=== PATIENT | female | born 1950 | race Caucasian/White ===

== ENCOUNTER → 2016-07-22 | Outpatient (CLI) | payer OTHER ==
[~2016-07-22] MED LIST: BNT20 PO; CALC12502 PO; CHOL100027 PO; CMP/10 PO; DICY20TA35 PO; EVER5TAB PO; IBUP-1050 PO; LEVO125T72 PO; LORA-741 PO; LORA10TA44 PO; MULT-506 PO; OCTR100I SQ; OCTR200I INJ; OMEP40CA PO; ONDA4TAB46 PO; OPTIRAY 320 IV PRN; OXYC-609 PO; OXYC15TA89 PO; PREG1CAP70 PO; PRLSR20 PO
--- NOTE | 2016-07-22 13:16 | DIAGNOSTIC IMAGING REPORT ---
CT SOFT TISSUE NECK WITH CT DOSE: CLINICAL HISTORY: CARCINOID TUMOR TECHNIQUE: Helical images were acquired during intravenous administration of 92 cc of Optiray 320. COMPARISON STUDY: September 19, 2012 FINDINGS: The visualized portions of the lung apices are unremarkable. The patient appears be status post a previous thyroidectomy. Evaluation of thyroid bed is limited due to moderate motion artifact at this level. No salivary gland masses are visualized. There is an enlarged 15 mm prevascular lymph node within the superior mediastinum. There are additional mildly prominent left supraclavicular lymph nodes. Lymph nodes within the more superior neck are felt to be within normal limits in size. There is no evidence of airway compromise. No mucosal space masses are visualized. IMPRESSION: 1. Surgically absent thyroid 2. Enlarging 15 mm prevascular lymph node within the superior mediastinum. Stable prominent left supra clavicular lymph nodes. Electronically signed by: Javier Luna M.D. 07/22/2016 1:14 PM Dictated Date/Time: 07/22/2016 1:08 PM
--- NOTE | 2016-07-22 13:28 | DIAGNOSTIC IMAGING REPORT ---
CT SCAN OF THE CHEST WITH IV CONTRAST CLINICAL HISTORY: Metastatic carcinoid tumor. COMPARISON STUDY: Chest CT scans dated 01/27/2016 and 09/24/2013. TECHNIQUE: Following the IV administration of 92 cc of Optiray 320, CT scan of the chest was performed from the upper abdomen to the thoracic inlet. Images are reviewed in the axial, sagittal, and coronal planes. IV contrast was administered without complication. CT DOSE: 1257.39 mGy.cm FINDINGS: Thyroid: Surgically absent. Thoracic aorta: The thoracic aorta is normal in caliber and demonstrates standard 3-vessel arch anatomy. No dissection is seen. Pulmonary vasculature: The pulmonary trunk is normal in caliber. There are no central filling defects identified in the pulmonary vessels to suggest pulmonary embolus. Note that this examination was not specifically protocoled to assess for pulmonary emboli. Heart: The heart is normal in size and configuration, and without pericardial effusion. Lungs and pleural spaces: A small fat-containing Bochdalek hernia is noted at the right lung base. There is no airspace consolidation or pleural effusion. No concerning pulmonary lesion is seen. The trachea and central airways are clear. Mediastinum: There is no mediastinal lymphadenopathy. Dalila: Clear. Axillae: There is no axillary lymphadenopathy. Lower neck: There is a 1.6 x 1.3 cm left subclavicular lymph node seen on image #36. This is similar appearance to the 01/27/2016 examination. Upper abdomen: There are postoperative changes from right hepatic lobe resection. Several mass lesions within the remaining right lobe grossly unchanged from the 01/27/2016 examination. There are numerous bilateral renal cysts. A cortical calcification is present in the right upper pole and measures 284. There is glandular atrophy of the imaged pancreas. See report of abdominal CT performed concurrently for detailed intra-abdominal findings. Skeletal structures: The skeletal structures are osteopenic. Degenerative change and scoliosis are noted in the thoracic spine. A 2 cm mixed lytic/sclerotic lesion in the body of T12 as well as a lesion in the left posterior fourth rib are unchanged from 01/27/2016. IMPRESSION: 1. There is no evidence of progressive metastatic disease in the thorax as compared 01/27/2016. 2. The lungs are clear. 3. Unchanged appearance of a mildly enlarged left supraclavicular lymph node. 4. Metastatic bone metastases within the left posterior fourth rib and the body of T12 are unchanged. 5. There are postoperative changes from right hepatic lobe resection with hepatic metastatic lesions. See report of abdominal CT performed concurrently for detailed findings. Electronically signed by: Jose Eduardo Diaz M.D. 07/22/2016 1:27 PM Dictated Date/Time: 07/22/2016 1:14 PM
--- NOTE | 2016-07-22 13:48 | DIAGNOSTIC IMAGING REPORT ---
ABDOMEN AND PELVIS CT WITH IV AND ORAL CONTRAST CT DOSE: HISTORY: Carcinoid tumor TECHNIQUE: Multiaxial CT images of the abdomen and pelvis were performed following the use of intravenous and oral contrast. COMPARISON STUDY: 01/27/2016 FINDINGS: Lung bases are clear. The hepatic metastatic disease involving the right hepatic lobe is perhaps minimally progressive. Hyperdense nodular density peripheral aspect right hepatic lobe now measures 2.4 cm increased from 1.8 cm. An additional region peripheral aspect right hepatic lobe demonstrates a slight increased 2.0 cm from 1.8 cm. Findings are prior cholecystectomy again noted. Surgical clips in the right upper quadrant are present and are unchanged. Right renal cyst is unaltered. Several additional microcysts throughout both kidneys are stable. There is no evidence for hydronephrosis. The central mesenteric density persists and is unchanged at 2.8 cm maximum linear dimension. Several No present measuring up to 9.5 mm. This is unchanged compared to the prior study. Bowel pattern within the abdomen and pelvis is nonobstructive. There is no significant pelvic or inguinal adenopathy. Metastatic change to the low thoracic and upper lumbar spine is stable. There are no significant new or interval changes. IMPRESSION: 1. Slightly progressive hepatic metastatic change. 2. All remaining components of the study, including the mid mesenteric nodule, retroperitoneal yvon pathology, and bony metastatic disease are all stable. Electronically signed by: Dion Velarde M.D. 07/22/2016 1:46 PM Dictated Date/Time: 07/22/2016 1:15 PM
== END | disposition home or self-care (01) ==
LOC: C.CTS 11:35
PROVIDERS: ATTEND Internal Medicine Hematology & Oncology
DX: C7A.00 Malignant carcinoid tumor of unspecified site (principal); C7B.02 Secondary carcinoid tumors of liver

== ENCOUNTER → 2016-09-15 | Outpatient (CLI) | payer OTHER ==
--- NOTE | 2016-09-15 12:26 | DIAGNOSTIC IMAGING REPORT ---
CT OF THE NECK WITH CONTRAST CLINICAL HISTORY: Metastatic carcinoid tumor. TECHNIQUE: Axial images of the neck were obtained following intravenous injection of 119 cc of Optiray 320 IV. The chest, abdomen and pelvis CTs will be reported separately. COMPARISON STUDY: CT of the neck July 22, 2016. FINDINGS: Visualized portions of the intracranial contents are unremarkable. There are several scalp sebaceous cysts which are benign. An enlarged left upper prevascular lymph node shown on axial image [id number] of July 22, 2016. This measures 1.4 cm in short axis diameter. No additional enlarged lymph nodes are identified. Medialization of the right vocal cord is unchanged since exam of May 04, 2012. There are findings consistent with a thyroidectomy.. The postoperative appearance is unchanged. Epiglottis is normal. Parotid and submandibular glands are normal. No suspicious osseous lesions are identified. IMPRESSION: 1. No change in a mildly enlarged left prevascular lymph node since CT of July 22, 2016. No additional enlarged lymph nodes identified. 2. Unchanged appearance of the neck status post thyroidectomy. Electronically signed by: Magnus Adkins M.D. 09/15/2016 12:25 PM Dictated Date/Time: 09/15/2016 12:16 PM
--- NOTE | 2016-09-15 12:31 | DIAGNOSTIC IMAGING REPORT ---
CT SCAN OF THE CHEST WITH IV CONTRAST CLINICAL HISTORY: Metastatic carcinoid tumor. COMPARISON STUDY: Chest CT scans dated 07/22/16 and 09/24/2013. TECHNIQUE: Following the IV administration of 119 cc of Optiray 320, CT scan of the chest was performed from the upper abdomen to the thoracic inlet. Images are reviewed in the axial, sagittal, and coronal planes. IV contrast was administered without complication. FINDINGS: Thyroid: Surgically absent. Thoracic aorta: The thoracic aorta is normal in caliber and demonstrates standard 3-vessel arch anatomy. No dissection is seen. Pulmonary vasculature: The pulmonary trunk is normal in caliber. There are no central filling defects identified in the pulmonary vessels to suggest pulmonary embolus. Note that this examination was not specifically protocoled to assess for pulmonary emboli. Heart: The heart is normal in size and without pericardial effusion. Lungs and pleural spaces: A small fat-containing Bochdalek hernia is noted at the right lung base. There is no airspace consolidation or pleural effusion. No concerning pulmonary lesion is seen. The trachea and central airways are clear. Mediastinum: There is no mediastinal lymphadenopathy. Dalila: Clear. Axillae: There is no axillary lymphadenopathy. Lower neck: There are mildly enlarged left supraclavicular lymph nodes. The largest measures 1.8 x 1.4 cm as seen on image #47. This is similar appearance to the 07/22/16 examination. Upper abdomen: Again seen are postoperative changes from right hepatic lobe resection. Several mass lesions within the remaining right lobe grossly unchanged from the 07/22/16 examination. There are numerous bilateral renal cysts. A cortical calcification is present in the right upper pole. There is glandular atrophy of the imaged pancreas. See report of abdominal CT performed concurrently for detailed intra-abdominal findings. Skeletal structures: The skeletal structures are osteopenic. Degenerative change and scoliosis are noted in the thoracic spine. A hemangioma is noted in the body of T8. A 2 cm mixed lytic/sclerotic lesion in the body of T12 seen on image #276 as well as a lesion in the left posterior fourth rib are unchanged from 01/27/2016. An enhancing left paraspinous implant at the level of T8-T9 on image #177 has increased in size from 07/22/2016. This now measures 1.2 cm (previously measured 0.9 cm). A 9 mm enhancing paraspinous nodule is seen at the level of T5 on image #102. This has not appreciably changed from previous. Both lesions are new from 2014. A small pseudomeningocele or nerve sheath cyst on the left at T10-T11 is unchanged dating back to 2013. IMPRESSION: 1. There is an enlarging 1.2 cm enhancing left paraspinous soft tissue implant at the level of T8-T9 as compared to the 07/22/2016 examination. This likely represents minimal progression of metastatic disease. 2. A smaller paraspinous implant at the level of T5 has not appreciably changed. 3. The lungs are clear. 4. Left supraclavicular lymphadenopathy is unchanged. 5. Metastatic bone lesions within the left posterior fourth rib and the body of T12 are unchanged. No progressive bony metastatic disease is seen. 6. Again seen are postoperative changes from right hepatic lobe resection with hepatic metastatic lesions. See report of abdominal CT performed concurrently for detailed findings. Electronically signed by: Jose Eduardo Diaz M.D. 09/15/2016 12:30 PM Dictated Date/Time: 09/15/2016 12:16 PM
--- NOTE | 2016-09-15 12:31 | DIAGNOSTIC IMAGING REPORT ---
CT ABD/PELVIS IV AND ORAL CONT CLINICAL HISTORY: Carcinoid tumor COMPARISON STUDY: July 21, 2016, January 27, 2016 TECHNIQUE: Following the IV administration of 119 mL of Optiray-320, CT scan of the abdomen and pelvis was performed from the lung bases to the proximal femurs. Images are reviewed in the axial, sagittal, and coronal planes. IV contrast was administered without complication. CT DOSE: 1518.52 mGy.cm FINDINGS: Lower chest: The heart is normal in size and configuration, without pericardial effusion. The lung bases and pleural spaces are clear. Liver: There are multiple space-occupying hepatic masses. The largest is an exophytic mass involving the right lobe laterally. This measures 33.4 mm in diameter. This previously measured 31.6 mm. Gallbladder: Surgically absent. There is mild common bile duct dilatation unchanged the prior study Spleen: Normal in size and attenuation. Pancreas: Unremarkable. Adrenal glands: Unremarkable. Kidneys: There are multiple bilateral hypodense renal lesions most consistent with cysts. The largest on the right measures 25 mm. The largest on the left measures 9 mm. Bowel: There are no transition zones to indicate bowel obstruction. There is no acute diverticulitis. There is a markedly dilated fluid-filled appendix measuring 19 mm. Peritoneum: There is a 3.6 cm central mesenteric mass. This remain similar in size to the preceding study. Vasculature: The abdominal aorta is normal in course and caliber. Adenopathy: There is a slowly enlarging 19 mm peripancreatic lymph node. There is left para-aortic lymphadenopathy which appears similar to the prior 2017 study, but increased when compared to 2016 study. Pelvic viscera: The bladder, and pelvic viscera are unremarkable. Skeletal structures: There is a 17 mm T12 lesion, similar to the preceding study. IMPRESSION: 1. Suspected minimal progression in the patient's hepatic metastatic disease 2. Slowly progressive lymphadenopathy 3. Persistent central mesenteric mass, similar to the prior study 4. Markedly dilated fluid-filled appendix consistent with a mucocele 5. Stable T12 lesion, likely representing a bony metastasis Electronically signed by: Javier Luna M.D. 09/15/2016 12:30 PM Dictated Date/Time: 09/15/2016 12:17 PM
== END | disposition home or self-care (01) ==
LOC: C.CTS 11:24
PROVIDERS: ATTEND Internal Medicine Hematology & Oncology
DX: C7B.02 Secondary carcinoid tumors of liver (principal); C7A.00 Malignant carcinoid tumor of unspecified site

== ENCOUNTER 2016-12-06 06:01 | Emergency (ER) | payer OTHER ==
[~2016-12-06] VITALS: Ht 172.7 cm; Wt 68.0 kg
[~2016-12-06 06:01] MED LIST changes: -CMP/10 PO; -DICY20TA35 PO; -OCTR200I INJ; -ONDA4TAB46 PO; -OPTIRAY 320 IV PRN; -OXYC15TA89 PO; -PRLSR20 PO
[2016-12-06 06:06] VITALS: TEMP 36.5; Ht 172.7 cm; Wt 68.0 kg
[2016-12-06] MEDS ORDERED: FENTANYL CITRATE INJ 50 MCG/1 ML 2 ML VIAL IV STA ×4 (06:30→09:48)
[2016-12-06] MEDS ORDERED: ONDANSETRON INJ 2 MG/ML 2 ML VIAL IV STA (06:30)
--- NOTE | 2016-12-06 06:30 | EMERGENCY ROOM VISIT NOTE ---
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 She recently had chemoembolization earlier this month. Sudden onset vomiting started last night with the pain. She notes she usually has right upper quadrant abdominal pain for which she takes as required oxycodone and codeine/acetaminophen prescribed by Dr Napoles. She did not take any pain relief yesterday despite having pain; until the evening when she developed severe pain and took 5mg oxycodone which did not help. She feels this pain is an acute exacerbation of her chronic pain in the same region. She has been having hard bowel movements and takes stool softeners as required. She denies any melena or GI bleeding. She is not currently on chemotherapy due to chemoembolization on 24 November. Last took everolimus November 18. Review of Systems See HPI for pertinent positives & negatives. A total of 10 systems reviewed and were otherwise negative. Past Medical/Surgical History Medical Problems: (1) Neuroendocrine cancer Social History Smoking Status: Former Smoker Alcohol Use: none Drug Use: none Current/Historical Medications Scheduled Calcium Carbonate (Os-Mina 500), 1 TAB PO DAILY Cholecalciferol (Vitamin D 1000 Unit), 2,000 INTER.UNIT PO DAILY Levothyroxine Sodium (Synthroid), 125 MCG PO DAILY Multivitamin (Multivitamin), 1 TAB PO DAILY Octreotide Acetate (Sandostatin), 1 DOSE INJ MONTHLY Oxycodone HCl (Oxycodone HCl), 1-2 TAB PO Q4H Oxycodone Hcl (Oxycontin), 15 MG PO Q12 Scheduled PRN Dicyclomine Hcl (Bentyl), 20 MG PO QID PRN for PRN Ibuprofen (Advil), 200-600 MG PO Q4H PRN Lorazepam (Ativan), 0.5 MG PO Q6 PRN for Anxiety Omeprazole (Prilosec), 20 MG PO DAILY PRN for GI Upset Ondansetron Hcl (Zofran), 4 MG PO Q4 PRN for Nausea Prochlorperazine Maleate (Prochlorperazine Maleate), 10 MG PO DAILY PRN for Nausea Allergies Coded Allergies: Morphine (Verified Adverse Reaction, Mild, DISORIENTED, 07/31/15) Physical Exam Vital Signs Date Time Temp Pulse Resp B/P (MAP) Pulse Ox O2 Delivery O2 Flow Rate FiO2 12/06/16 10:58 55 18 163/85 97 12/06/16 10:20 63 18 167/79 96 Room Air 12/06/16 08:21 53 18 167/111 98 Room Air 12/06/16 07:04 48 18 181/82 98 Room Air 12/06/16 06:23 51 12/06/16 06:06 36.5 53 17 144/73 99 Room Air Physical Exam VITAL SIGNS: were reviewed as above GENERAL: moderate acute distress with abdominal pain, thin SKIN: Warm dry and pink, no rashes HEAD: Normocephalic and atraumatic EYES: extraocular muscles intact, pupils equal and reactive to light OROPHARYNX: non erythematous, clear, dry NECK: No meningismus LUNGS: No respiratory distress, clear to auscultation, no accessory muscle use HEART: Regular rate and rhythm, heart sounds 1+2, no murmurs ABDOMEN: Soft, RUQ pain on palpation without guarding or rebound tenderness, bowel sounds normal BACK: no CVA tenderness EXTREMITIES: Warm and well perfused, no calf tenderness/swelling, no pedal edema. NEUROLOGICALLY: Awake alert and oriented without gross focal extremity deficit. Cranial nerves 2-12 intact. Cerebellar testing is within normal limits. There is no nystagmus. There is no facial droop. Speech is clear. Vision is grossly normal. Medical Decision & Procedures ER Provider Diagnostic Interpretation: CHEST ONE VIEW PORTABLE CLINICAL HISTORY: Severe abdominal pain ?perforation COMPARISON STUDY: 09/25/2010 FINDINGS: The bones soft tissues and hemidiaphragms are normal. The cardiomediastinal silhouette is normal. The lungs are clear. The pulmonary vasculature is normal. IMPRESSION: Negative chest. Electronically signed by: Dion Velarde M.D. 12/06/2016 6:57 AM Dictated Date/Time: 12/06/2016 6:[address] SCAN OF THE ABDOMEN AND PELVIS WITH IV CONTRAST CLINICAL HISTORY: Right-sided abdominal pain. History of carcinoid tumor. COMPARISON STUDY: Multiple prior abdominal CT scans, most recently dated 09/15/2016. TECHNIQUE: Following the IV administration of 93 cc of Optiray 320, CT scan of the abdomen and pelvis is performed from the lung bases to the proximal femora. Images reviewed in the axial, sagittal, and coronal planes. IV contrast was administered without complication. FINDINGS: Lung bases: The heart is normal in size and without pericardial effusion. There are foci of linear atelectasis versus scarring present in the lower lobes. No airspace consolidation or pleural effusion is seen. There is a small hiatal hernia. Liver: The right lobe of the liver is diminutive and heterogeneous. Hyperdense material throughout the liver is new from 09/15/2016 and consistent with interval chemoembolization. This is predominantly concentrated in the right lobe. Low-attenuation mass lesions in the right lobe are again seen. A lesion on image #51 measures 3.0 cm. Comparison to the 09/15/2016 examination is difficult due to interval chemoembolization and marked heterogeneity. There is mild central intrahepatic biliary ductal dilatation. The right portal vein is markedly attenuated there is likely thrombosis of peripheral vessels. The main and left portal veins as well as the hepatic veins are clear. Gallbladder: Surgically absent noting clips in the gallbladder fossa. Spleen: Normal in size and attenuation. Pancreas: Atrophic and grossly unremarkable. Adrenal glands: Unremarkable. Kidneys: The contrast enhanced kidneys demonstrate cortical atrophy and are without hydronephrosis. The kidneys enhance symmetrically. There are numerous bilateral renal cysts and too small to characterize subcentimeter cortical hypodensities. These are overall similar appearance to previous. Abdominal vasculature: The abdominal aorta is normal in course and caliber noting mild atherosclerotic calcification. Bowel: The small bowel and colon are normal in course and caliber. There is moderate colonic fecal retention. There is mild colonic diverticulosis without CT evidence of acute diverticulitis. Again seen is a markedly dilated and fluid-filled appendix. This measures up to 2.1 cm. A calcified fecalith is noted. The degree of distention appears to be increased from 09/15/2016. Trace fluid is suggested around the base of the appendix.. Peritoneum: There is no intraperitoneal free air. A small volume of fluid is seen in the pelvis. A 2 x 3 cm mesenteric mass lesion seen on axial image #209 has not significantly changed in appearance from prior examinations and is typical in appearance for a carcinoid metastasis. Additional small foci of mesenteric nodularity are nonspecific. There is a small fat-containing umbilical hernia. Lymphadenopathy: Retroperitoneal lymphadenopathy has modestly progressed from 09/15/2016. A left periaortic node on image #155 measures up to 1.5 cm (previously measured up to 1.3 cm). Pelvic viscera: The bladder, uterus, and adnexa are normal as visualized. Nodularity within the subcutaneous fat in the left gluteal region is unchanged. Skeletal structures: The skeletal structures are osteopenic. A metastatic lesion within the anterior body of T12 is unchanged from previous. A subcentimeter metastatic focus is identified in the body of L1 on axial image #87. A new bony metastatic lesion is seen in the right ilium on image #211. A new lesion is also suspected in the body of T11 on image #32. Degenerative change and scoliosis are noted throughout the lumbosacral spine. IMPRESSION: 1. The appendix remains dilated and fluid-filled. The degree of appendiceal distention has increased from 09/15/2016 and a large calcified appendicolith is noted. Trace nonspecific fluid is seen around the base of the appendix. No significant wall thickening or inflammation is identified. This likely represents a mucocele. Superimposed acute appendicitis is not excluded and clinical correlation will be required. 2. Extensive chemoembolization material is seen throughout the liver, new from 09/15/2016. 3. Hepatic mass lesions are again noted. Direct comparison to previous is difficult due to significant interval change. 4. No significant change in the appearance of a mass lesion in the central mesentery from prior examinations. This remains typical for a carcinoid metastasis. 5. There is evidence of progressive osseous metastatic disease. New lesions are seen in the body of T11 and the right iliac wing. 6. Retroperitoneal lymphadenopathy has also modestly progressed. 7. Small volume of pelvic ascites. 8. Additional changes as above. Electronically signed by: Jose Eduardo Diaz M.D. 12/06/2016 8:13 AM Dictated Date/Time: 12/06/2016 7:53 AM Laboratory Results 12/06/16 06:24 Red Blood Count 3.52, Mean Corpuscular Volume 85.2, Mean Corpuscular Hemoglobin 27.8, Mean Corpuscular Hemoglobin Concent 32.7, Mean Platelet Volume 10.3, Neutrophils (%) (Auto) 79.5, Lymphocytes (%) (Auto) 8.0, Monocytes (%) (Auto) 11.4, Eosinophils (%) (Auto) 0.5, Basophils (%) (Auto) 0.3, Neutrophils # (Auto ) 2.99, Lymphocytes # (Auto) 0.30, Monocytes # (Auto) 0.43, Eosinophils # (Auto ) 0.02, Basophils # (Auto) 0.01 12/06/16 06:24 Test 12/06/16 06:24 12/06/16 06:39 12/06/16 06:43 12/06/16 06:47 White Blood Count 3.76 K/uL (4.8-10.8) Red Blood Count 3.52 M/uL (4.2-5.4) Hemoglobin 9.8 g/dL (12.0-16.0) Hematocrit 30.0 % (37-47) Mean Corpuscular Volume 85.2 fL (80-100) Mean Corpuscular Hemoglobin 27.8 pg (25-34) Mean Corpuscular Hemoglobin Concent 32.7 g/dl (32-36) Platelet Count 268 K/uL (130-400) Mean Platelet Volume 10.3 fL (7.4-10.4) Neutrophils (%) (Auto) 79.5 % Lymphocytes (%) (Auto) 8.0 % Monocytes (%) (Auto) 11.4 % Eosinophils (%) (Auto) 0.5 % Basophils (%) (Auto) 0.3 % Neutrophils # (Auto) 2.99 K/uL (1.4-6.5) Lymphocytes # (Auto) 0.30 K/uL (1.2-3.4) Monocytes # (Auto) 0.43 K/uL (0.11-0.59) Eosinophils # (Auto) 0.02 K/uL (0-0.5) Basophils # (Auto) 0.01 K/uL (0-0.2) RDW Standard Deviation 43.7 fL (36.4-46.3) RDW Coefficient of Variation 14.4 % (11.5-14.5) Immature Granulocyte % (Auto) 0.3 % Immature Granulocyte # (Auto) 0.01 K/uL (0.00-0.02) Prothrombin Time 10.7 SECONDS (9.0-12.0) Prothromb Time International Ratio 1.0 (0.9-1.1) Activated Partial Thromboplast Time 33.7 SECONDS (21.0-31.0) Partial Thromboplastin Ratio 1.3 Est Creatinine Clear Calc Drug Dose 70.7 ml/min Estimated GFR () 89.7 Estimated GFR (Non- 77.4 BUN/Creatinine Ratio 10.2 (10-20) Calcium Level 9.0 mg/dl (8.5-10.1) Total Bilirubin 0.5 mg/dl (0.2-1) Aspartate Amino Transf (AST/SGOT) 29 U/L (15-37) Alanine Aminotransferase (ALT/SGPT) 42 U/L (12-78) Alkaline Phosphatase 295 U/L (45-117) Total Protein 7.0 gm/dl (6.4-8.2) Albumin 2.9 gm/dl (3.4-5.0) Globulin 4.1 gm/dl (2.5-4.0) Albumin/Globulin Ratio 0.7 (0.9-2) Lipase 95 U/L (73-393) Ammonia 11.0 umol/L (11-32) Bedside Hemoglobin 9.5 g/dl (12.0-16.0) Bedside Hematocrit 28 % (37-47) Bedside Sodium 138 mEq/L (135-144) Bedside Potassium 3.4 mEq/L (3.3-5.0) Bedside Chloride 98 mEq/L (101-112) Bedside Total CO2 26 mEq/l (24-31) Anion Gap 18.0 mmol/L (16-25) Bedside Blood Urea Nitrogen 6 mg/dl (7-18) Bedside Creatinine 0.8 mg/dl (0.6-1.3) Bedside Glucose (other) 116 mg/dl (70-99) Bedside Ionized Calcium (Chrystal) 1.09 mmol/l (1.12-1.32) Bedside Lactic Acid Venous 0.89 mmol/L (0.90-1.70) Test 12/06/16 07:40 Urine Color YELLOW Urine Appearance CLOUDY (CLEAR) Urine pH >= 9.0 (4.5-7.5) Urine Specific Calera 1.020 (1.000-1.030) Urine Protein NEG (NEG) Urine Glucose (UA) NEG (NEG) Urine Ketones NEG (NEG) Urine Occult Blood NEG (NEG) Urine Nitrite NEG (NEG) Urine Bilirubin NEG (NEG) Urine Urobilinogen NEG (NEG) Urine Leukocyte Esterase NEG (NEG) Urine WBC (Auto) 0 /hpf (0-5) Urine RBC (Auto) 0-4 /hpf (0-4) Urine Hyaline Casts (Auto) 0 /lpf (0-5) Urine Epithelial Cells (Auto) 0-5 /lpf (0-5) Urine Bacteria (Auto) NEG (NEG) Medications Administered Medications (Trade) Dose Ordered Sig/Malcolm Route Start Time Stop Time Status Last Admin Dose Admin Ondansetron HCl (Zofran Inj) 4 mg NOW STAT IV 12/06/16 06:30 12/06/16 06:32 DC 12/06/16 06:40 4 MG Fentanyl Citrate (Fentanyl Inj) 25 mcg NOW STAT IV 12/06/16 06:30 12/06/16 06:32 DC 12/06/16 06:40 25 MCG Sodium Chloride 1,000 ml @ 999 mls/hr Q1H1M STAT IV 12/06/16 06:37 12/06/16 07:37 DC 12/06/16 06:40 999 MLS/HR Fentanyl Citrate (Fentanyl Inj) 50 mcg NOW STAT IV 12/06/16 06:53 12/06/16 06:54 DC 12/06/16 07:02 50 MCG Fentanyl Citrate (Fentanyl Inj) 50 mcg NOW STAT IV 12/06/16 08:09 12/06/16 08:10 DC 12/06/16 08:20 50 MCG Polyethylene (Miralax Powder Packet) 17 gm DAILY STAT PO 12/06/16 08:24 12/06/16 08:25 DC 12/06/16 08:50 17 GM Bisacodyl (Dulcolax Tab) 5 mg NOW ONCE PO 12/06/16 08:30 12/06/16 08:31 DC 12/06/16 08:51 5 MG Bisacodyl (Dulcolax Supp) 10 mg NOW STAT NV 12/06/16 08:26 12/06/16 08:27 DC 12/06/16 08:51 10 MG Polyethylene (Miralax Powder Packet) 17 gm DAILY STAT PO 12/06/16 09:48 12/06/16 09:52 DC 12/06/16 10:19 17 GM Fentanyl Citrate (Fentanyl Inj) 50 mcg NOW STAT IV 12/06/16 09:48 12/06/16 09:52 DC 12/06/16 10:06 50 MCG ECG Indication: abdominal pain Rate (beats per minute): 47 Findings: other (QTc ) Comparison ECG Date: now bradycardia is present (EKG December 2011) ED Course 06:25 Complete history and physical performed 06:[address] Fofana who separately performed history and physical 07:00 Reassessed pain and minimal pain relief with 25mcg Fentanyl, currently getting 50mcg IV 07:52 Reassessed patient - feels some relief fentanyl but still remains 6/10 pain 08:24 CT scan showed no obstruction. Discussed with Dr Fofana and prescribed miralax and bisacodyl 09:45 Reassessed patient - she had a bowel movement, pain 5/10 10:03 Pain 4/10, expresses wish to be discharged as pain much better controlled and she feels she can manage at home. Requests oxycontin as she can tolerate the side effects of the longer acting medication much better. Since her pain is acute on chronic a longer acting opiate might better control her pain. Medical Decision Prior records/ancillary studies reviewed. Triage Nursing notes reviewed. Additional history obtained from patient. The patient's history was concerning for abdominal pain. Differential diagnosis: Etiologies such as appendicitis, diverticulitis, PUD, biliary pathology, UTI, pancreatitis, obstruction, mesenteric ischemia, aortic pathology, infections, inflammatory bowel disease, renal colic, as well as others were entertained. Physical examination findings: As above. ER treatment provided: NSS 1L bolus Zofran 4mg IV Fentanyl 25 mcg, 50mcg x3 IV Miralax 17g x2 Bisacodyl 5mg tab PO Bisacodyl 10mg supp NV The patient was reassessed throughout the clinical course and before each new medication prescription and slowly improved with her pain. On discharge her abdominal pain was 4/10. Diagnostics interpreted by me: ECG: as above The labs revealed acute on chronic anemia, elevated ALP (increased from previously correlates with new bony metastatic disease on CT) Imaging studies: see above, no obstruction. pain is over liver consistent with CT interval changes of the liver, no pain over dilated appendix By the evaluation outlined above emergent etiologies such as appendicitis, diverticulitis, PUD, biliary pathology, UTI, pancreatitis, obstruction, mesenteric ischemia, aortic pathology, infections, inflammatory bowel disease, renal colic, as well as others were deemed relatively unlikely. Her pain is most likely due to metastatic carcinoid disease of her liver with chemoembolization changes. This improved significantly with fentanyl given and she was advised on better pain control at home. The patient and her daughter were informed about the findings as listed above. All questions were answered and she was pleased with the treatment. Return instructions were outlined and the patient was discharged in stable condition. Outpatient prescription management: Oxycontin 15 mg Q12H 30 tabs Zofran 4mg PO Q4H 30 tabs Referral: The patient was referred back to their primary care physician for follow-up in 1 to 2 days for a recheck of the current condition. [place] Drug Monitoring Program Search Results: patient reviewed within database, no issues identified Drug Monitoring Findings: Lorazepam, oxycodone and acetaminophen-codeine prescribed by Dr Napoles Impression Primary Impression: Neuroendocrine cancer Additional Impressions: Constipation Anemia Departure Information Dispostion Home / Self-Care Condition FAIR Prescriptions Oxycodone Hcl (OXYCONTIN) 15 Mg Tab 15 MG PO Q12, #30 TAB Prov: Alexis North MD 12/06/16 Ondansetron Hcl (ZOFRAN) 4 Mg Tab 4 MG PO Q4 Y for Nausea for 30 Days, #30 TAB Prov: Alexis North MD 12/06/16 Referrals Gideon Tsang D.O. (PCP) Patient Instructions My [facility] Additional Instructions Your abdominal pain is likely due to your metastatic carcinoid disease with recent chemoembolization. CT A/P did show some constipation in addition. ABDOMINAL PAIN INSTRUCTIONS: DO NOT drive, drink alcohol, operate machinery, or perform dangerous activities today. You were given medications in the ER that can affect your ability to safely function or operate a vehicle. OxyContin 15mg take every 12 hours for background pain. Avoid alcohol, operating machinery or dangerous equipment, working on ladders or roofs, DRIVING , making important decisions, or situations where being under the influence may be dangerous. It is recommended to use an [id number] stool softener such as Colace, 100mg twice daily while taking this medication to avoid constipation. You can take miralax in addition to this as needed to aim for 1 bowel movement a day. Oxycodone (OxyIR) 5mg: Take 1-2 pills every four hours as needed for breakthrough pain. Avoid alcohol, operating machinery or dangerous equipment, working on ladders or roofs, DRIVING, making important decisions, or situations where being under the influence may be dangerous. It is recommended to use an [id number] stool softener such as Colace, 100mg twice daily while taking this medication to avoid constipation. You can take miralax in addition to this as needed to aim for 1 bowel movement a day. Acetaminophen(Tylenol) may be used for fever or pain. Use 1000mg every eight hours as needed. Avoid using more than 3000mg in a 24 hour period. This is available over the counter. Zofran(odansetron) tablets 4mg: Take one and allow it to dissolve in your mouth every four hours as needed for nausea or vomiting. Phenergan(promethazine) (please take as prescribed by your oncologist. Take one every six hours as needed for nausea. Avoid alcohol, operating machinery or dangerous equipment, working on ladders or roofs , DRIVING, or situations where being under the influence may be dangerous. Read all the package inserts or medication information paperwork provided. If you have any questions or concerns call your primary provider, pharmacist or the ER for assistance. Rest and drink plenty of fluids as tolerated. Slow sips of water or sports drinks are recommended instead of large amounts all at once. Continue current medications. Once your stomach is settled start with a clear liquid diet (jello, soup broth, etc.) and then advance as tolerated. You should avoid full, heavy meals for about 24 hrs from the time your symptoms resolved. Return to the ER immediately for worsening or persistent abdominal pain, vomiting, fevers, chest pains, difficulty breathing, black or bloody stools, worsening of your condition, or as needed. Return to the ER or follow up with your primary provider in 8-12 hours for a recheck of your current condition. Follow up with your primary physician in 1-2 days for a recheck of your current condition. Resident Tracking Resident Involvement: Resident Care Provided Care Provided: Adult ED Problem Qualifiers Additional Impressions: Constipation Constipation type: slow transit constipation Qualified Codes: K59.01 - Slow transit constipation Anemia Anemia type: unspecified type Qualified Codes: D64.9 - Anemia, unspecified
[2016-12-06] MEDS ORDERED: SODIUM CHLORIDE 0.9% 1000ML 1,000 ML IV STA (06:37)
[2016-12-06 06:38] LABS: BASO % 0.3 %; BASO ABS # 0.01 K/uL (0-0.2); COMPLETE YES; EOS % 0.5 %; IG% 0.3 %; MEAN CELL VOLUME 85.2 fL (80-100); MEAN CORPUSCULAR HEMOGLOBIN 27.8 pg (25-34); MEAN CORPUSCULAR HGB CONC 32.7 g/dl (32-36); MEAN PLATELET VOLUME 10.3 fL (7.4-10.4); MONO % 11.4 %; NEUT % 79.5 %; PLATELET COUNT 268 K/uL (130-400); RED BLOOD COUNT 3.52 M/uL (4.2-5.4); WHITE BLOOD COUNT 3.76 K/uL (4.8-10.8)
[2016-12-06 06:54] LABS: ISTAT CREATININE 0.8 mg/dl (0.6-1.3); ISTAT HEMOGLOBIN 9.5 g/dl (12.0-16.0); ISTAT IONIZED CALCIUM 1.09 mmol/l (1.12-1.32)
[2016-12-06 06:55] LABS: PARTIAL THROMBOPLASTIN RATIO 1.3; PROTHROMBIN TIME (PATIENT) 10.7 SECONDS (9.0-12.0)
--- NOTE | 2016-12-06 06:58 | DIAGNOSTIC IMAGING REPORT ---
CHEST ONE VIEW PORTABLE CLINICAL HISTORY: Severe abdominal pain ?perforation COMPARISON STUDY: 09/25/2010 FINDINGS: The bones soft tissues and hemidiaphragms are normal. The cardiomediastinal silhouette is normal. The lungs are clear. The pulmonary vasculature is normal. IMPRESSION: Negative chest. Electronically signed by: Dion Velarde M.D. 12/06/2016 6:57 AM Dictated Date/Time: 12/06/2016 6:56 AM
[2016-12-06] MEDS ORDERED: OPTIRAY 320 IV PRN (07:00)
[2016-12-06 07:02] LABS: BUN/CREATININE RATIO 10.2 (10-20); CREATININE 0.8 mg/dl (0.60-1.20); POTASSIUM 3.5 mmol/L (3.5-5.1)
[2016-12-06 07:05] LABS: ALB/GLOB RATIO 0.7 (0.9-2)
[2016-12-06] MEDS ORDERED: CMP/10 PO (07:49)
[2016-12-06] MEDS ORDERED: DICY20TA35 PO (07:49)
[2016-12-06] MEDS ORDERED: PRLSR20 PO (07:49)
[2016-12-06] MEDS ORDERED: OCTR200I INJ (07:49)
[2016-12-06 07:59] LABS: MANUAL MICROSCOPIC REQUIRED? NO; REVIEW REQ? NO; URINE APPEARANCE CLOUDY (CLEAR); URINE BILIRUBIN NEG (NEG); URINE COLOR YELLOW; URINE EPITHELIAL CELL AUTO 0-5 /lpf (0-5); URINE NITRITE NEG (NEG); URINE PH >= 9.0 (4.5-7.5); UROBILINOGEN NEG (NEG); ZZUR CULT IF INDIC CLEAN CATCH NO
--- NOTE | 2016-12-06 08:14 | DIAGNOSTIC IMAGING REPORT ---
CT SCAN OF THE ABDOMEN AND PELVIS WITH IV CONTRAST CLINICAL HISTORY: Right-sided abdominal pain. History of carcinoid tumor. COMPARISON STUDY: Multiple prior abdominal CT scans, most recently dated 09/15/2016. TECHNIQUE: Following the IV administration of 93 cc of Optiray 320, CT scan of the abdomen and pelvis is performed from the lung bases to the proximal femora. Images reviewed in the axial, sagittal, and coronal planes. IV contrast was administered without complication. FINDINGS: Lung bases: The heart is normal in size and without pericardial effusion. There are foci of linear atelectasis versus scarring present in the lower lobes. No airspace consolidation or pleural effusion is seen. There is a small hiatal hernia. Liver: The right lobe of the liver is diminutive and heterogeneous. Hyperdense material throughout the liver is new from 09/15/2016 and consistent with interval chemoembolization. This is predominantly concentrated in the right lobe. Low-attenuation mass lesions in the right lobe are again seen. A lesion on image #51 measures 3.0 cm. Comparison to the 09/15/2016 examination is difficult due to interval chemoembolization and marked heterogeneity. There is mild central intrahepatic biliary ductal dilatation. The right portal vein is markedly attenuated there is likely thrombosis of peripheral vessels. The main and left portal veins as well as the hepatic veins are clear. Gallbladder: Surgically absent noting clips in the gallbladder fossa. Spleen: Normal in size and attenuation. Pancreas: Atrophic and grossly unremarkable. Adrenal glands: Unremarkable. Kidneys: The contrast enhanced kidneys demonstrate cortical atrophy and are without hydronephrosis. The kidneys enhance symmetrically. There are numerous bilateral renal cysts and too small to characterize subcentimeter cortical hypodensities. These are overall similar appearance to previous. Abdominal vasculature: The abdominal aorta is normal in course and caliber noting mild atherosclerotic calcification. Bowel: The small bowel and colon are normal in course and caliber. There is moderate colonic fecal retention. There is mild colonic diverticulosis without CT evidence of acute diverticulitis. Again seen is a markedly dilated and fluid-filled appendix. This measures up to 2.1 cm. A calcified fecalith is noted. The degree of distention appears to be increased from 09/15/2016. Trace fluid is suggested around the base of the appendix.. Peritoneum: There is no intraperitoneal free air. A small volume of fluid is seen in the pelvis. A 2 x 3 cm mesenteric mass lesion seen on axial image #209 has not significantly changed in appearance from prior examinations and is typical in appearance for a carcinoid metastasis. Additional small foci of mesenteric nodularity are nonspecific. There is a small fat-containing umbilical hernia. Lymphadenopathy: Retroperitoneal lymphadenopathy has modestly progressed from 09/15/2016. A left periaortic node on image #155 measures up to 1.5 cm (previously measured up to 1.3 cm). Pelvic viscera: The bladder, uterus, and adnexa are normal as visualized. Nodularity within the subcutaneous fat in the left gluteal region is unchanged. Skeletal structures: The skeletal structures are osteopenic. A metastatic lesion within the anterior body of T12 is unchanged from previous. A subcentimeter metastatic focus is identified in the body of L1 on axial image #87. A new bony metastatic lesion is seen in the right ilium on image #211. A new lesion is also suspected in the body of T11 on image #32. Degenerative change and scoliosis are noted throughout the lumbosacral spine. IMPRESSION: 1. The appendix remains dilated and fluid-filled. The degree of appendiceal distention has increased from 09/15/2016 and a large calcified appendicolith is noted. Trace nonspecific fluid is seen around the base of the appendix. No significant wall thickening or inflammation is identified. This likely represents a mucocele. Superimposed acute appendicitis is not excluded and clinical correlation will be required. 2. Extensive chemoembolization material is seen throughout the liver, new from 09/15/2016. 3. Hepatic mass lesions are again noted. Direct comparison to previous is difficult due to significant interval change. 4. No significant change in the appearance of a mass lesion in the central mesentery from prior examinations. This remains typical for a carcinoid metastasis. 5. There is evidence of progressive osseous metastatic disease. New lesions are seen in the body of T11 and the right iliac wing. 6. Retroperitoneal lymphadenopathy has also modestly progressed. 7. Small volume of pelvic ascites. 8. Additional changes as above. Electronically signed by: Jose Eduardo Diaz M.D. 12/06/2016 8:13 AM Dictated Date/Time: 12/06/2016 7:53 AM
[2016-12-06] MEDS ORDERED: POLYETHYLENE (MIRALAX) 17 GM PACK PO STA ×2 (08:24→09:48)
[2016-12-06] MEDS ORDERED: BISACODYL 10 MG SUPP PR STA (08:26)
[2016-12-06] MEDS ORDERED: BISACODYL 5 MG TABEC PO ONE (08:30)
[2016-12-06] MEDS ORDERED: ONDA4TAB46 PO (10:37)
[2016-12-06] MEDS ORDERED: OXYC15TA89 PO (10:37)
[2016-12-06 10:58] VITALS: BP 163/85; PULSE 55; O2SAT 97
--- NOTE | 2016-12-06 15:25 | EMERGENCY ROOM VISIT NOTE ---
ED Visit Note First contact with patient: 06:34 Resident Physician Supervision Note: I interviewed and examined the patient. Discussed with Dr. North and agree with findings and plan as documented in the note. Any exceptions or clarifications are listed here: [None] The patient's images and laboratory work were reviewed. 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 I suspect the patient's pain is coming from a combination of her tumor burden and fecal stasis. The patient was given MiraLAX by mouth as well as a Dulcolax suppository. She was given a prescription for additional pain medication, OxyContin. Please refer to Dr. North's notes for further details of the history, physical and visit. Documented By: Annel Fofana
[2017-02-17] MEDS ORDERED: OXYC15TA89 PO (09:44)
[2017-04-24] MEDS ORDERED: OXYC15TA89 PO (00:08)
[2017-04-24] MEDS ORDERED: OXYC-164 PO (00:08)
[2017-04-24] MEDS ORDERED: ATV1 PO (00:08)
[2017-04-24] MEDS ORDERED: POLY335019 PO (00:09)
[2017-04-24] MEDS ORDERED: DOCU100T7 PO (00:09)
[2017-04-24] MEDS ORDERED: CALC500C70 PO (00:11)
[2017-04-24] MEDS ORDERED: POTA99TA PO (00:13)
[2017-04-27] MEDS ORDERED: OXYC15TA89 PO (14:35)
[2017-04-27] MEDS ORDERED: OXYC-164 PO (14:35)
[2017-04-27] MEDS ORDERED: CEFT1INJ57 IV (14:35)
[2017-04-27] MEDS ORDERED: RXC5 PO (16:25)
[2017-04-27] MEDS ORDERED: OXYSR15 PO (16:25)
== END 2016-12-06 10:59 | disposition home or self-care (01) ==
LOC: C.EDB 06:02 → C.EDA 10:59
DX: C7A.029 Malignant carcinoid tumor of the large intestine, unspecified portion (principal); C78.7 Secondary malignant neoplasm of liver and intrahepatic bile duct; C78.89 Secondary malignant neoplasm of other digestive organs; C79.51 Secondary malignant neoplasm of bone; K59.01 Slow transit constipation; D64.9 Anemia, unspecified; R00.1 Bradycardia, unspecified; Z87.891 Personal history of nicotine dependence; R11.2 Nausea with vomiting, unspecified

== ENCOUNTER → 2017-02-03 | Outpatient (CLI) | payer OTHER ==
[~2017-02-03] MED LIST changes: -BNT20 PO; +CMP/10 PO; +DICY20TA35 PO; -EVER5TAB PO; +INDOMETHACIN 50 MG SUPP PR ONE; -LORA10TA44 PO; -OCTR100I SQ; +OCTR200I INJ; -OMEP40CA PO; +OPTIRAY 320 IV PRN; +OXYC15TA89 PO; -PREG1CAP70 PO; +PRLSR20 PO
--- NOTE | 2017-02-03 12:55 | DIAGNOSTIC IMAGING REPORT ---
ABDOMEN AND PELVIS CT WITH IV AND ORAL CONTRAST CT DOSE: 256.55 mGy.cm HISTORY: HX CARCINOID TUMOR, WORSENING LFTS TECHNIQUE: Multiaxial CT images of the abdomen and pelvis were performed following the use of intravenous and oral contrast. A dose lowering technique was utilized adhering to the principles of ALARA. COMPARISON STUDY: Abdomen and pelvis CT 12/06/2016. FINDINGS: The lung bases are clear. No change in the metastatic lesion within the anterior body of T12 and the right iliac crest. A few small sclerotic foci are noted at T11 and L1, unchanged. There is also favor metastatic foci. The right hepatic lobe is atrophic and demonstrates multiple scattered hypodense foci consistent with prior chemoembolization. Multiple hypodense lesions within the right hepatic lobe are not significantly changed. Dominant peripheral hypodense lesion measures 3.0 cm. Interval development of mild to moderate intrahepatic bile duct dilatation. The right portal vein is narrowed, unchanged. Surgical clips at the supa hepatis. Possible pancreatic lesion versus a peripancreatic lymph node on image 98 of 421 measuring 1.2 cm. This does not appear to be significantly changed. No change in the left periaortic lymphadenopathy. Dominant lymph node measures 1.4 cm. Right-sided mesenteric mass as also unchanged. This measures approximately 3.6 cm. Normal adrenal glands. No evidence for bowel obstruction. Multiple renal hypodense lesions remain stable. Trace pelvic free fluid. The bladder, uterus, bilateral adnexa are unremarkable. Cholecystectomy. The spleen is normal. No change in the distended and fluid-filled appendix measuring 1.9 cm in diameter. No surrounding inflammatory change. There are suggestion of a 1.8 cm appendicolith within the proximal appendix. IMPRESSION: 1. No change in the hepatic masses status post chemoembolization. 2. However, there is been interval development of mild to moderate intrahepatic bile duct dilatation. This is concerning for an occult obstructing lesion. Consider ERCP for further evaluation. 3. Otherwise, no significant change in the scattered metastatic disease as described above. 4. No change in the distended appendix containing a 1.8 cm appendicolith proximally. There is no surrounding inflammatory change. Therefore, the possibility of a mucocele must be considered. Electronically signed by: Amol Emerson M.D. 02/03/2017 12:54 PM Dictated Date/Time: 02/03/2017 12:35 PM
== END | disposition home or self-care (01) ==
LOC: C.CTS 11:54
PROVIDERS: ATTEND Internal Medicine Hematology & Oncology
DX: C7A.00 Malignant carcinoid tumor of unspecified site (principal)

== ENCOUNTER → 2017-02-14 | Day surgery (SDC) | payer OTHER ==
[~2017-02-14] VITALS: Ht 172.7 cm; Wt 63.0 kg
[~2017-02-14] MED LIST changes: +ATROPINE SULFATE 0.1 MG/ML 5ML SYR IV PRN; +CIPROFLOXACIN 400MG / 200ML D5W ONE; +DEXAMETHASONE SOD INJ 4 MG/ML VIAL ONE; +EpHEDrine SULFATE INJ 50 MG/ML AMP IV PRN; +FENTANYL CITRATE INJ 50 MCG/1 ML 2 ML VIAL ONE; +HydrALAZINE HCL 20 MG/ML VIAL ONE; +LIDOCAINE HCL 2% 2 ML VIAL (20MG/ML) ONE; +MIDAZOLAM HCL 1 MG/ML 2ML VIAL ONE; +NURSING VERBAL MED ORDER ONE; +ONDANSETRON INJ 2 MG/ML 2 ML VIAL ONE; -OPTIRAY 320 IV PRN; +PROPOFOL IV EMULSION 10 MG/ML 20 ML VIAL IV ONE; +SUCCINYLCHOLINE CHLORIDE 20 MG/ML 10 ML VIAL IV ONE
[2017-02-14 13:31] VITALS: BP 161/78; PULSE 65; TEMP 36.8; O2SAT 96; Ht 172.7 cm; Wt 63.0 kg
--- NOTE | 2017-02-14 15:44 | History and Physical ---
History & Physical Date Feb 14, 2017. Chief Complaint Biliary blockage History of Present Illness The patient is a 66 year old female with complaints of abnl lft's and dilated CBD Past Medical/Surgical History Medical Problems: (1) Neuroendocrine cancer Allergies Coded Allergies: Morphine (Verified Adverse Reaction, Mild, DISORIENTED, 02/14/17) Home Medications Scheduled Calcium Carbonate (Os-Mina 500), 1 TAB PO DAILY Cholecalciferol (Vitamin D 1000 Unit), 2,000 INTER.UNIT PO DAILY Levothyroxine Sodium (Synthroid), 125 MCG PO DAILY Multivitamin (Multivitamin), 1 TAB PO DAILY Octreotide Acetate (Sandostatin), 1 DOSE INJ MONTHLY Oxycodone HCl (Oxycodone HCl), 1-2 TAB PO Q4H Oxycodone Hcl (Oxycontin), 15 MG PO Q12 Scheduled PRN Dicyclomine Hcl (Bentyl), 20 MG PO QID PRN for PRN Ibuprofen (Advil), 200-600 MG PO Q4H PRN Lorazepam (Ativan), 0.5 MG PO Q6 PRN for Anxiety Omeprazole (Prilosec), 20 MG PO DAILY PRN for GI Upset Prochlorperazine Maleate (Prochlorperazine Maleate), 10 MG PO DAILY PRN for Nausea Physical Examination Skin: warm/dry, no rash Eyes: normal inspection ENT: normal ENT inspection Head: normocephalic Neck: supple Respiratory/Chest: no respiratory distress Cardiovascular: regular rate, rhythm Abdomen / GI: normal bowel sounds Neurologic/Psych: no motor/sensory deficits Diagnosis Biliary blockage ASA Classification: ASA Class III Plan of Treatment For ERCP
--- NOTE | 2017-02-14 17:07 | Discharge Instructions ---
Endoscopy Patient Instructions Date / Procedure(s) Performed Feb 14, 2017. ERCP Allergy Information Coded Allergies: Morphine (Verified Adverse Reaction, Mild, DISORIENTED, 02/14/17) Discharge Date / Findings Feb 14, 2017. Biliary obstruction Medication Instructions Restart Stopped Medication(s): resume meds Reported Home Medications Medications Dose Route/Sig Max Daily Dose Days Date Category Dose Instructions Oxycontin (Oxycodone Hcl) 15 Mg Tab 15 Mg PO Q12 12/06/16 Rx Bentyl (Dicyclomine Hcl) 20 Mg Tab 20 Mg PO QID PRN 12/06/16 Reported Prilosec (Omeprazole) 20 Mg Capcr 20 Mg PO DAILY PRN 12/06/16 Reported Sandostatin (Octreotide Acetate) 200 Mcg/Ml Inj 1 Dose INJ MONTHLY 12/06/16 Reported Prochlorperazine Maleate 10 Mg Tab 10 Mg PO DAILY PRN 12/06/16 Reported Oxycodone HCl 5 Mg Tab 1-2 Tab PO Q4H 02/06/15 Rx Ativan (Lorazepam) 0.5 Mg Tab 0.5 Mg PO Q6 PRN 05/27/14 Rx NEEDED FOR ANXIETY. Os-Mina 500 (Calcium Carbonate) Unknown Strength Tab 1 Tab PO DAILY 07/24/13 Reported Multivitamin (Multivitamins) Tab 1 Tab PO DAILY 12/18/12 Reported Advil (Ibuprofen) 200 Mg Tab 200-600 Mg PO Q4H PRN 12/18/12 Reported Vitamin D 1000 Unit (Cholecalciferol) 1,000 Unit Cap 2,000 Inter.unit PO DAILY 12/20/11 Reported Synthroid (Levothyroxine Sodium) 125 Mcg Tab 125 Mcg PO DAILY 12/20/11 Reported Provider Instructions Activity Restrictions - No exercising or heavy lifting for 24 hours. - Do not drink alcohol the day of the procedure. - Do not drive a car or operate machinery until the day after the procedure. - Do not make any important decisions or sign important papers in 24 hours after the procedure. Following Day: - Return to full activity which may include returning to work/school. Diet Start your diet with liquids and light foods (jello, soup, juice, toast). Then eat your usual diet if not nauseated. Treatment For Common After Affects For mild abdominal pain, bloating, or excessive gas: - Rest - Eat lightly - Lie on right side Follow-Up Information Follow-up with as scheduled Anesthesia Information What You Should Know You have had a procedure that required some medicine to reduce anxiety and discomfort. This treatment is called moderate sedation. After receiving the treatment, you may be sleepy, but you will be able to breathe on your own. The effects of the treatment may last for several hours. Follow these instructions along with Activity/Diet recommendations noted above: * Do NOT do anything where dizziness or clumsiness would be dangerous. * Rest quietly at home today, then you can be up and about tomorrow. * Have a responsible person stay with you the rest of today. * You may have had an I.V. today. If so, you may take the dressing off later today. Recommendations Call your doctor if: * Trouble breathing * Continuous vomiting for more than 24 hours * Temperature above 101 degrees * Severe abdominal pain or bloating * Pain not relieved by pain medicine ordered * There is increased drainage or redness from any incision * A large amount of rectal bleeding greater than 2-3 tablespoons. (If you had a polyp/s removed or have hemorrhoids, a small amount of blood - from the rectum is to be expected.) * You have any unanswered questions or concerns. IN THE EVENT OF A SERIOUS EMERGENCY, GO TO THE NEAREST EMERGENCY ROOM Your discharge instructions were prepared by provider Roger Martinez. Patient Instructions Signature Page Nessa Neff Patient (or Guardian) Signature/Date: I have read and understand the instructions given to me by my caregivers. Caregiver/RN/Doctor Signature/Date: The above-named patient and/or guardian has received patient instructions on this date. + Original Patient Signature Page (only) stays with chart. Please make copy for patient.
--- NOTE | 2017-02-14 17:17 | GI REPORT ---
Procedure Date: 02/14/2017 2:45 PM Procedure: ERCP Indications: Abnormal abdominal CT, Biliary dilation on Computed Tomogram Scan, Jaundice Medicines: General Anesthesia Complications: No immediate complications. Estimated Blood Loss: Estimated blood loss: none. Procedure: Pre-Anesthesia Assessment: - Prior to the procedure, a History and Physical was performed, and patient medications, allergies and sensitivities were reviewed. The patient's tolerance of previous anesthesia was reviewed. - The risks and benefits of the procedure and the sedation options and risks were discussed with the patient. All questions were answered and informed consent was obtained. After obtaining informed consent, the scope was passed under direct vision. Throughout the procedure, the patient's blood pressure, pulse, and oxygen saturations were monitored continuously. The SCOPE was introduced through the mouth, and advanced to the duodenum and used to inject contrast into the bile duct and dorsal pancreatic duct. The ERCP was accomplished without difficulty. The patient tolerated the procedure well. Findings: The major papilla was normal. Deep cannulation and injection of contrast into the dorsal pancreatic duct was accomplished. I personally interpreted the pancreatic duct images. The in the pancreas was normal. Superficial cannulation of and contrast injection into the bile duct was accomplished with the short-nosed traction autotome. The hepatic duct bifurcation contained a single severe stenosis 5 mm in length. A 3 mm biliary sphincterotomy was made with a Autotome sphincterotome using ERBE electrocautery. There was no post-sphincterotomy bleeding. One 7 Fr by 15 cm biliary stent with two internal flaps was placed into the common bile duct. Bile flowed through the stent. The stent was in good position. Impression: - The major papilla appeared normal. - A severe biliary stricture was found. The stricture was malignant appearing. - A sphincterotomy was performed. - One biliary stent was placed into the common bile duct. Recommendation: - Discharge patient to home (ambulatory). - Continue present medications. - Return to GI office in 1 month. Roger Martinez M.D. Roger Martinez MD 02/14/2017 5:16:12 PM This report has been signed electronically. Note Initiated On: 02/14/2017 2:45 PM I attest to the content of the Intraoperative Record and orders documented therein, exceptions below
--- NOTE | 2017-02-14 17:39 | Anesthesiology Progress Note ---
Anesthesia Post Op Note Date & Time Feb 14, 2017 at 17:39 Vital Signs Pain Intensity: 0 Vital Signs Past 12 Hours Date Time Temp Pulse Resp B/P (MAP) Pulse Ox O2 Delivery O2 Flow Rate FiO2 02/14/17 17:35 36.9 57 16 174/87 97 Room Air 02/14/17 17:25 56 16 179/92 97 Room Air 02/14/17 17:15 57 16 177/97 97 Room Air 02/14/17 17:05 36.6 79 12 185/92 100 Room Air 02/14/17 13:31 36.8 65 18 161/78 (105) 96 Room Air Notes Mental Status: alert / awake / arousable, participated in evaluation Pt Amnestic to Procedure: Yes Nausea / Vomiting: adequately controlled Pain: adequately controlled Airway Patency, RR, SpO2: stable & adequate BP & HR: stable & adequate Hydration State: stable & adequate Anesthetic Complications: no major complications apparent
[2017-02-14 17:50] VITALS: BP 178/76; PULSE 68; TEMP 36.6; O2SAT 98
--- NOTE | 2017-02-14 18:01 | DIAGNOSTIC IMAGING REPORT ---
ERCP BILIARY DUCTAL CLINICAL HISTORY: ERCP. COMPARISON STUDY: CT of the abdomen and pelvis February 03, 2017. Fluoroscopy time: 3 minutes and 49 seconds. FINDINGS: 5 fluoroscopic images of the right upper quadrant were obtained during ERCP. These images demonstrate cholecystectomy clips. The ampulla was cannulated. Biliary ductal dilatation was noted. Note is made of apparent high-grade narrowing at the level the proximal common bile duct. Subsequent images demonstrate apparent placement of a biliary stent. IMPRESSION: Fluoroscopic images from ERCP, as described above. Electronically signed by: Magnus Adkins M.D. 02/14/2017 5:59 PM Dictated Date/Time: 02/14/2017 5:56 PM
[2017-02-14 18:20] VITALS: BP 188/76; PULSE 64; TEMP 36.6; O2SAT 98
== END | disposition home or self-care (01) ==
LOC: C.ACU 12:47
PROVIDERS: ATTEND Internal Medicine Gastroenterology
DX: K83.1 Obstruction of bile duct (principal); Z79.899 Other long term (current) drug therapy

== ENCOUNTER 2017-02-15 13:06 | Inpatient (IN) | payer OTHER ==
[~2017-02-15] VITALS: Ht 172.7 cm; Wt 61.9 kg
[~2017-02-15 13:06] MED LIST changes: -ATROPINE SULFATE 0.1 MG/ML 5ML SYR IV PRN; -CIPROFLOXACIN 400MG / 200ML D5W ONE; -DEXAMETHASONE SOD INJ 4 MG/ML VIAL ONE; -EpHEDrine SULFATE INJ 50 MG/ML AMP IV PRN; -FENTANYL CITRATE INJ 50 MCG/1 ML 2 ML VIAL ONE; -HydrALAZINE HCL 20 MG/ML VIAL ONE; -INDOMETHACIN 50 MG SUPP PR ONE; -LIDOCAINE HCL 2% 2 ML VIAL (20MG/ML) ONE; -MIDAZOLAM HCL 1 MG/ML 2ML VIAL ONE; -NURSING VERBAL MED ORDER ONE; -ONDANSETRON INJ 2 MG/ML 2 ML VIAL ONE; -PROPOFOL IV EMULSION 10 MG/ML 20 ML VIAL IV ONE; -SUCCINYLCHOLINE CHLORIDE 20 MG/ML 10 ML VIAL IV ONE
[2017-02-15] MEDS ORDERED: FENTANYL CITRATE INJ 50 MCG/1 ML 2 ML VIAL IV STA (14:45)
[2017-02-15] MEDS ORDERED: SODIUM CHLORIDE 0.9% 1000ML 1,000 ML IV STA (14:45)
[2017-02-15] MEDS ORDERED: ONDANSETRON INJ 2 MG/ML 2 ML VIAL IV STA (14:45)
[2017-02-15 15:32] LABS: BASO % 0.1 %; BASO ABS # 0.01 K/uL (0-0.2); COMPLETE YES; HEMATOCRIT 37.7 % (37-47); IG% 0.3 %; LYMPH ABS # 0.36 K/uL (1.2-3.4); MEAN CELL VOLUME 85.5 fL (80-100); MEAN PLATELET VOLUME 11.7 fL (7.4-10.4); MONO % 3.5 %; NEUT % 92.1 %; PLATELET COUNT 190 K/uL (130-400); RED BLOOD COUNT 4.41 M/uL (4.2-5.4); WHITE BLOOD COUNT 9.05 K/uL (4.8-10.8)
[2017-02-15 15:44] LABS: ALT/SGPT 405 U/L (12-78); BLOOD UREA NITROGEN 15 mg/dl (7-18); BUN/CREATININE RATIO 16.4 (10-20); CARBON DIOXIDE 25 mmol/L (21-32); CHLORIDE 104 mmol/L (98-107); CREATININE 0.94 mg/dl (0.60-1.20); GLUCOSE 90 mg/dl (70-99); POTASSIUM 3.4 mmol/L (3.5-5.1); SODIUM 140 mmol/L (136-145)
[2017-02-15 15:59] LABS: ALB/GLOB RATIO 0.8 (0.9-2); ALKALINE PHOSPHATASE 1569 U/L (45-117); AST/SGOT 479 U/L (15-37)
--- NOTE | 2017-02-15 16:04 | EMERGENCY ROOM VISIT NOTE ---
History First contact with patient: 14:25 Chief Complaint: ABDOMINAL PAIN Stated Complaint: NAUSEA, ABDOMINAL PAIN, VOMITING Nursing Triage Summary: Pt states she had a stent place in a bile duct in her liver yesterday. Abd pain since this am. Upper mid abdominal pain the worst but pain all over abdomen. Dr concerned about Pancreatitis. N/V History of Present Illness The patient is a 66 year old female who presents to the Emergency Room with complaints of abdominal pain, nausea, vomiting since this morning. The patient states she had an ERCP with a stent placed yesterday. She was discharged last night, and was feeling fine. The patient states this morning, she woke experiencing severe upper abdominal pain and vomiting. She has vomited several times today, however is now experiencing dry heaves. The patient states her last episode of emesis was approximately 30 minutes ago, which she describes as green bile. Patient states she has a prescription for OxyContin which she took this morning, however she was unable to tolerate this medication and threw up. She contacted her surgeon, Dr. Martinez, and was advised to come to the emergency department to have a workup performed for possible pancreatitis. The patient describes the abdominal pain as generalized, worse in the upper abdomen. She describes it as sharp and rates the pain 8/10. The patient states nothing makes the pain better or worse. The patient has not been able to tolerate any fluids or foods yesterday or today. The patient did attempt to eat Scrabble eggs this morning, however threw them up immediately after. The patient denies any chest pain, dyspnea, diarrhea, constipation, headache, dizziness, loss of consciousness, altered mental status, or other concerning symptoms. Review of Systems A complete 10 point review of systems was reviewed with the patient with pertinent positives and negatives as per history of present illness. All else were negative. Past Medical/Surgical History Medical Problems: (1) Neuroendocrine cancer (2) Pancreatitis Carcinoid cancer Bile duct obstruction Social History Smoking Status: Former Smoker Alcohol Use: none Drug Use: none Marital Status: Housing Status: lives with family Occupation Status: unemployed Current/Historical Medications Scheduled Calcium Carbonate (Os-Mina 500), 1 TAB PO DAILY Cholecalciferol (Vitamin D 1000 Unit), 2,000 INTER.UNIT PO DAILY Levothyroxine Sodium (Synthroid), 125 MCG PO DAILY Multivitamin (Multivitamin), 1 TAB PO DAILY Octreotide Acetate (Sandostatin), 1 DOSE INJ MONTHLY Oxycodone HCl (Oxycodone HCl), 1-2 TAB PO Q4H Oxycodone Hcl (Oxycontin), 15 MG PO Q12 Scheduled PRN Dicyclomine Hcl (Bentyl), 20 MG PO QID PRN for PRN Ibuprofen (Advil), 200-600 MG PO Q4H PRN Lorazepam (Ativan), 0.5 MG PO Q6 PRN for Anxiety Prochlorperazine Maleate (Prochlorperazine Maleate), 10 MG PO DAILY PRN for Nausea Allergies Morphine Physical Exam Vital Signs Date Time Temp Pulse Resp B/P (MAP) Pulse Ox O2 Delivery O2 Flow Rate FiO2 02/15/17 19:06 55 17 02/15/17 18:36 54 19 98 02/15/17 18:06 56 15 98 02/15/17 17:36 58 19 98 02/15/17 17:32 62 18 169/80 99 Room Air 02/15/17 17:31 169/80 02/15/17 16:27 181/81 02/15/17 16:26 51 18 181/81 99 Room Air 02/15/17 16:06 46 20 100 02/15/17 15:36 60 16 158/78 100 Room Air 02/15/17 15:36 58 20 100 02/15/17 15:31 158/78 02/15/17 15:26 55 02/15/17 15:18 172/80 02/15/17 13:18 36.4 55 16 142/72 96 Room Air Physical Exam VITALS: Vitals are noted on the nurse's note and reviewed by myself. Vital signs stable. GENERAL: This is a 66-year-old white female, in no acute distress, nondiaphoretic, well-developed well-nourished. SKIN: The skin was without rashes, erythema, edema, or bruising. There is no tenting of the skin. Capillary reflex less than 2 seconds. HEAD: Normocephalic atraumatic. EARS: External auditory canals clear, tympanic membranes pearly bean without erythema or effusion bilaterally. EYES: Pupils equal round and reactive to light and accommodation. Conjunctivae without injection, sclerae without icterus. Extraocular movements intact. NOSE: Patent, turbinates without inflammation or discharge. No sinus tenderness. MOUTH: Mucous membranes moist. Tonsils are not enlarged. Pharynx without erythema or exudate. Uvula midline. Airway patent. Tongue does not deviate. NECK: Supple without nuchal rigidity. No lymphadenopathy. No thyromegaly. Cervical spine is nontender. No JVD. HEART: Regular rate and rhythm without murmurs gallops or rubs. LUNGS: Clear to auscultation bilaterally without wheezes, rales or rhonchi. No dullness to percussion. No retractions or accessory muscle use. ABDOMEN: Positive bowel sounds x 4. Normal tympanic percussion. The upper abdomen is significantly tender on palpation, worse in the epigastric region. Otherwise, the abdomen is soft, nontender, without masses or organomegaly. Ortiz sign negative. No guarding or rebound tenderness. MUSCULOSKELETAL: No muscle atrophy, erythema, or edema noted. Full range of motion without joint tenderness in all extremities. No tenderness to palpation. Normal gait. Strength 5/5 throughout. NEURO: Patient was alert and oriented to person place and time. Normal sensation to light and sharp touch. Deep tendon reflexes 2+ throughout. No focal neurological deficits. Medical Decision & Procedures ER Provider Diagnostic Interpretation: Labs: CBC did not show any leukocytosis, anemia, thrombocytopenia. CMP did show significantly elevated liver tests with an AST of 479, ALT of 405, alkaline phosphatase of 1569. These are stable from the patient's last labs which were completed approximately 2 weeks ago. Otherwise, CMP without significant renal impairment or electrolyte abnormalities. Amylase was elevated at 5674. Lipase was elevated at 52,922. X-Ray Abdomen with PA Chest: FINDINGS: Lung volumes are normal. No pneumothorax or pleural effusion is present. There is no consolidation to suggest pneumonia. Pulmonary vascularity is normal. Cardiomediastinal silhouette is normal. Surgical clips from thyroidectomy are noted. There is no free air. A biliary stent is in place. There are cholecystectomy clips. There is no evidence for a bowel obstruction. IMPRESSION: 1. No free air or evidence of bowel obstruction. 2. Biliary stent in place. 3. No acute cardiopulmonary findings. U/S Abdomen: FINDINGS: Mild intra and extrahepatic biliary ductal dilatation is noted. Common bile duct measures 8 mm in caliber. This is similar to prior CT. The biliary stent is visualized. Multiple hepatic lesions are again noted. These are better depicted on recent CT of February 03, 2017. There is mild dilatation of the main pancreatic duct which measures 4 mm in caliber. This may reflects a new finding since prior CT. Several hypoechoic lesions either adjacent to or arising from the pancreas are noted. The largest measures 2 cm and is at the level the pancreatic body. There is no right hydronephrosis. Multiple right renal cysts are noted. IMPRESSION: 1. Mild intra and extrahepatic biliary ductal dilatation which is either stable or slightly improved since CT of February 03, 2017. Biliary stent in place. 2. Interval development of mild dilatation of the main pancreatic duct. Partially obscured pancreas. 3. Several hypoechoic lesions either arising from or adjacent to the pancreas which were present on prior CT. The largest lesion favors a peripancreatic lymph node although a pancreatic lesion or complex peripancreatic fluid collection could appear similar. 4. Multiple hepatic masses which are better depicted on CT of February 03, 2017. Laboratory Results 02/15/17 15:15 Red Blood Count 4.41, Mean Corpuscular Volume 85.5, Mean Corpuscular Hemoglobin 29.0, Mean Corpuscular Hemoglobin Concent 34.0, Mean Platelet Volume 11.7, Neutrophils (%) (Auto) 92.1, Lymphocytes (%) (Auto) 4.0, Monocytes (%) (Auto) 3.5, Eosinophils (%) (Auto) 0.0, Basophils (%) (Auto) 0.1, Neutrophils # (Auto) 8.33, Lymphocytes # (Auto) 0.36, Monocytes # (Auto) 0.32, Eosinophils # (Auto) 0.00, Basophils # (Auto) 0.01 02/15/17 15:15 Test 02/15/17 14:45 02/15/17 15:15 Creatine Kinase MB Ratio (0-3.0) White Blood Count 9.05 K/uL (4.8-10.8) Red Blood Count 4.41 M/uL (4.2-5.4) Hemoglobin 12.8 g/dL (12.0-16.0) Hematocrit 37.7 % (37-47) Mean Corpuscular Volume 85.5 fL (80-100) Mean Corpuscular Hemoglobin 29.0 pg (25-34) Mean Corpuscular Hemoglobin Concent 34.0 g/dl (32-36) Platelet Count 190 K/uL (130-400) Mean Platelet Volume 11.7 fL (7.4-10.4) Neutrophils (%) (Auto) 92.1 % Lymphocytes (%) (Auto) 4.0 % Monocytes (%) (Auto) 3.5 % Eosinophils (%) (Auto) 0.0 % Basophils (%) (Auto) 0.1 % Neutrophils # (Auto) 8.33 K/uL (1.4-6.5) Lymphocytes # (Auto) 0.36 K/uL (1.2-3.4) Monocytes # (Auto) 0.32 K/uL (0.11-0.59) Eosinophils # (Auto) 0.00 K/uL (0-0.5) Basophils # (Auto) 0.01 K/uL (0-0.2) RDW Standard Deviation 55.5 fL (36.4-46.3) RDW Coefficient of Variation 17.7 % (11.5-14.5) Immature Granulocyte % (Auto) 0.3 % Immature Granulocyte # (Auto) 0.03 K/uL (0.00-0.02) Anion Gap 11.0 mmol/L (3-11) Est Creatinine Clear Calc Drug Dose 57.5 ml/min Estimated GFR () 73.3 Estimated GFR (Non- 63.2 BUN/Creatinine Ratio 16.4 (10-20) Calcium Level 9.0 mg/dl (8.5-10.1) Total Bilirubin 3.6 mg/dl (0.2-1) Aspartate Amino Transf (AST/SGOT) 479 U/L (15-37) Alanine Aminotransferase (ALT/SGPT) 405 U/L (12-78) Alkaline Phosphatase 1569 U/L (45-117) Creatine Kinase MB 0.9 ng/ml (0.5-3.6) Troponin I < 0.015 ng/ml (0-0.045) Total Protein 7.7 gm/dl (6.4-8.2) Albumin 3.4 gm/dl (3.4-5.0) Globulin 4.3 gm/dl (2.5-4.0) Albumin/Globulin Ratio 0.8 (0.9-2) Amylase Level 5674 U/L (25-115) Lipase 02441 U/L (73-393) Medications Administered Medications (Trade) Dose Ordered Sig/Malcolm Route Start Time Stop Time Status Last Admin Dose Admin Sodium Chloride 1,000 ml @ 999 mls/hr Q1H1M STAT IV 02/15/17 14:45 02/15/17 15:45 DC 02/15/17 15:29 999 MLS/HR Fentanyl Citrate (Fentanyl Inj) 50 mcg NOW STAT IV 02/15/17 14:45 02/15/17 14:50 DC 02/15/17 15:28 50 MCG Ondansetron HCl (Zofran Inj) 4 mg NOW STAT IV 02/15/17 14:45 02/15/17 14:50 DC 02/15/17 15:28 4 MG Fentanyl Citrate (Fentanyl Inj) 50 mcg Q1H PRN IV 02/15/17 16:15 03/01/17 16:14 02/15/17 17:57 50 MCG Lactated Ringer's 1,000 ml @ 999 mls/hr Q1H1M STAT IV 02/15/17 17:26 02/15/17 18:26 DC 02/15/17 18:54 999 MLS/HR Piperacillin Sod/ Tazobactam Sod (Zosyn Iv) 3.375 gm NOW STAT IV 02/15/17 17:26 02/15/17 17:28 DC 02/15/17 18:54 3.375 GM Hydromorphone HCl (Dilaudid Inj) 0.5 mg STK-MED ONCE .ROUTE 02/15/17 18:42 02/15/17 18:43 DC 02/15/17 18:55 0.5 MG Ondansetron HCl (Zofran Inj) 4 mg STK-MED ONCE .ROUTE 02/15/17 18:42 02/15/17 18:43 DC 02/15/17 18:55 4 MG ECG Indication: abdominal pain Rate (beats per minute): 59 Rhythm: sinus bradycardia Findings: no acute ischemic change, prolonged QT Comparison ECG Date: 12/06/2016 Change: no significant change (however, HR has increased) ED Course The patient was seen and evaluated as above. She did request pain medication immediately. Labs, EKG, imaging studies were ordered. The patient was started on IV fluids and was given 1 L of normal saline solution. The patient was given 50 g of fentanyl and Zofran. Moderate improvement in her symptoms. While awaiting ultrasound, the patient did request more pain medication. She was given a repeat dose of 50 g of fentanyl. I reviewed the patient's lab work. Upon receipt of lipase results, I did contact Dr. Martinez regarding the patient's condition. He did recommend admission. He requested that we start the patient on lactated Ringer's, control her pain, and feet her when she is willing and able. Dr. Martinez states the patient should be admitted under the hospitalist service, and he will consult with her. I discussed the results with the patient and her family at bedside. I advised them that the patient would need to be admitted for management of her acute pancreatitis. The patient did request more pain medication at this time. I spoke with Dr. Bar regarding the patient condition and need for admission. He is in agreement and recommends starting Zosyn. This antibiotic was started. I consulted with the [facility] hospitalists. I spoke with Dr. Patton's physician assistant professor nurse education, who states they would be accepting the admission. The patient was seen and evaluated by the hospitalist. Please see her dictation. The patient was seen and evaluated by Dr. Bar. The patient was admitted to the hospitalist service. Medical Decision Based on the patient's presentation and recent history of ERCP with common bile duct blockage, I do suspect pancreatitis. The patient's lab results and imaging studies do support this. The differential diagnosis includes: Acute pancreatitis, acute cholecystitis, bowel obstruction, acute coronary syndrome, GERD, malignancy, and others. Medication Reconcilliation Current Medication List: was personally reviewed by me Blood Pressure Screening Patient's blood pressure: Normal blood pressure Impression Primary Impression: Pancreatitis Departure Information Dispostion Admitted as an inpatient Condition FAIR Referrals Gideon Tsang D.O. (PCP) Patient Instructions [facility] Problem Qualifiers Primary Impression: Pancreatitis Chronicity: acute Pancreatitis type: biliary Acute pancreatitis complication: unspecified Qualified Codes: K85.10 - Biliary acute pancreatitis without necrosis or infection
[2017-02-15] MEDS: FENTANYL CITRATE INJ 50 MCG/1 ML 2 ML VIAL IV PRN ×2 (16:24→17:57)
[2017-02-15 16:52] LABS: AMYLASE 5674 U/L (25-115)
--- NOTE | 2017-02-15 16:56 | DIAGNOSTIC IMAGING REPORT ---
PA CHEST RADIOGRAPH AND UPRIGHT AND SUPINE AP RADIOGRAPHS OF THE ABDOMEN CLINICAL HISTORY: Abdominal pain, nausea and vomiting status post ERCP. COMPARISON STUDY: CT of the abdomen and pelvis February 03, 2017 and ERCP February 14, 2017. FINDINGS: Lung volumes are normal. No pneumothorax or pleural effusion is present. There is no consolidation to suggest pneumonia. Pulmonary vascularity is normal. Cardiomediastinal silhouette is normal. Surgical clips from thyroidectomy are noted. There is no free air. A biliary stent is in place. There are cholecystectomy clips. There is no evidence for a bowel obstruction. IMPRESSION: 1. No free air or evidence of bowel obstruction. 2. Biliary stent in place. 3. No acute cardiopulmonary findings. Electronically signed by: Magnus Adkins M.D. 02/15/2017 4:55 PM Dictated Date/Time: 02/15/2017 4:51 PM
[2017-02-15] MEDS ORDERED: LACTATED RINGER'S 1000ML 1,000 ML IV STA (17:26)
[2017-02-15] MEDS ORDERED: PIPERACILLIN/TAZOBACTAM 3.375 GM/100ML D5W IV STA (17:26)
--- NOTE | 2017-02-15 17:33 | DIAGNOSTIC IMAGING REPORT ---
ABDOMINAL ULTRASOUND, RIGHT UPPER QUADRANT HISTORY: Upper abdominal pain status post ERCP. History of metastatic carcinoid tumor. COMPARISON: CT of the abdomen and pelvis February 03, 2017. FINDINGS: Mild intra and extrahepatic biliary ductal dilatation is noted. Common bile duct measures 8 mm in caliber. This is similar to prior CT. The biliary stent is visualized. Multiple hepatic lesions are again noted. These are better depicted on recent CT of February 03, 2017. There is mild dilatation of the main pancreatic duct which measures 4 mm in caliber. This may reflects a new finding since prior CT. Several hypoechoic lesions either adjacent to or arising from the pancreas are noted. The largest measures 2 cm and is at the level the pancreatic body. There is no right hydronephrosis. Multiple right renal cysts are noted. IMPRESSION: 1. Mild intra and extrahepatic biliary ductal dilatation which is either stable or slightly improved since CT of February 03, 2017. Biliary stent in place. 2. Interval development of mild dilatation of the main pancreatic duct. Partially obscured pancreas. 3. Several hypoechoic lesions either arising from or adjacent to the pancreas which were present on prior CT. The largest lesion favors a peripancreatic lymph node although a pancreatic lesion or complex peripancreatic fluid collection could appear similar. 4. Multiple hepatic masses which are better depicted on CT of February 03, 2017. Electronically signed by: Magnus Adkins M.D. 02/15/2017 5:31 PM Dictated Date/Time: 02/15/2017 5:23 PM
--- NOTE | 2017-02-15 17:47 | EMERGENCY ROOM VISIT NOTE ---
ED Visit Note First contact with patient: 14:25 Patient was seen by our PA/VETERINARY MEAT INSPECTOR. I was involved in the patient's care and did evaluate the patient myself. I was involved in the care throughout the ER stay. The patient presents with abdominal pain. She had an ERCP with stenting yesterday, she appears to have pancreatitis by workup. Admission/observation is warranted.
[2017-02-15] MEDS ORDERED: MAGNESIUM HYDROXIDE SUSP 30 ML UDC PO PRN (18:00)
[2017-02-15] MEDS ORDERED: ALUMINUM/MAGNESIUM/SIMETH (MAALOX MAX) 30 ML UDC PO PRN (18:00)
[2017-02-15] MEDS ORDERED: ONDANSETRON INJ 2 MG/ML 2 ML VIAL IV PRN (18:00)
[2017-02-15] MEDS ORDERED: LORAZEPAM 0.5 MG TAB PO PRN (18:00)
[2017-02-15] MEDS ORDERED: ACETAMINOPHEN 325 MG TAB PO PRN (18:00)
--- NOTE | 2017-02-15 18:08 | History and Physical ---
History & Physical Date & Time of Service: Feb 15, 2017 at 18:07 Chief Complaint: Nausea, Abdominal Pain, Vomiting Primary Care Physician: Gideon Tsang D.O. History of Present Illness Source: patient, family Ms. Neff is a 66 y/o female with PMHx of Metastatic Carcinoid CA and Hypothyroidism 2/2 Thyroidectomy who presents to the ED c/o abdominal pain that started this AM. Patient underwent ERCP with stent placement and sphincterotomy yesterday by Dr. Martinez for abnormal LFTs dilated CBD. ERCP revealed severe biliary stricture that appeared malignant. She reports tolerating this procedure well. This AM, she developed bilateral upper quadrant abdominal pain and nausea and vomiting. She has been unable to keep down food due to nausea and vomiting. She attempted to take OxyContin for the pain but ultimately threw this up as well. Abdominal pain is described as sharp and is an 8/10 at its worst. She does report temporary relief with fentanyl given in the ED. Patient does have metastatic carcinoid CA and follows with Dr. Napoles and is not currently on chemotherapy but does take Afinitor but was recently stopped on this due to this procedure. In the ED, patient is afebrile and without leukocytosis. Vital signs are stable. Lipase elevated at 53,000. AST 479, ALT 405, alkaline phosphatase 1569. Imaging of the abdomen does not reveal free air or bowel obstruction, stable versus improved extrahepatic biliary ductal dilatation, mild dilatation of pancreatic duct, and peripancreatic lymph nodes. Patient was hydrated and provided pain management. She was started on Zosyn. She will be admitted to [facility] for acute pancreatitis secondary to ERCP. Past Medical/Surgical History 1. Metastatic Carcinoid CA 2. Biliary Stricture S/P ERCP 3. Hypothyroidism S/P Total Thyroidectomy Family History Patient reports no known family medical history. Social History Smoking Status: Former Smoker Smokeless Tobacco Use: No Drug Use: none Marital Status: Housing status: lives with family Occupational Status: unemployed Immunizations History of Influenza Vaccine: No History of Tetanus Vaccine?: Unknown History of Pneumococcal: No History of Hepatitis B Vaccine: No Multi-Drug Resistant Organisms History of MDRO: No Allergies Coded Allergies: Morphine (Verified Adverse Reaction, Mild, DISORIENTED, 02/15/17) Home Medications Scheduled Calcium Carbonate (Os-Mina 500), 1 TAB PO DAILY Cholecalciferol (Vitamin D 1000 Unit), 2,000 INTER.UNIT PO DAILY Levothyroxine Sodium (Synthroid), 125 MCG PO DAILY Multivitamin (Multivitamin), 1 TAB PO DAILY Octreotide Acetate (Sandostatin), 1 DOSE INJ MONTHLY Oxycodone HCl (Oxycodone HCl), 1-2 TAB PO Q4H Oxycodone Hcl (Oxycontin), 15 MG PO Q12 Scheduled PRN Dicyclomine Hcl (Bentyl), 20 MG PO QID PRN for PRN Ibuprofen (Advil), 200-600 MG PO Q4H PRN Lorazepam (Ativan), 0.5 MG PO Q6 PRN for Anxiety Prochlorperazine Maleate (Prochlorperazine Maleate), 10 MG PO DAILY PRN for Nausea Review of Systems Constitutional: No fever, No chills ENT: No nasal symptoms, No sore throat, No trouble swallowing Respiratory: No cough, No shortness of breath Cardiovascular: No chest pain, No palpitations Abdomen: + pain (bilateral upper quadrants), + nausea, + vomiting, No diarrhea Musculoskeletal: No swelling, No calf pain Genitourinary - Female: No dysuria Hematologic / Lymphatic: No abnormal bleeding/bruising, No clotting problems Physical Exam Vital Signs Date Time Temp Pulse Resp B/P (MAP) Pulse Ox O2 Delivery O2 Flow Rate FiO2 02/15/17 17:32 62 18 169/80 99 Room Air 02/15/17 16:26 51 18 181/81 99 Room Air 02/15/17 15:36 60 16 158/78 100 Room Air 02/15/17 15:26 55 02/15/17 13:18 36.4 55 16 142/72 96 Room Air General Appearance: no apparent distress, + thin Head: normocephalic, atraumatic Eyes: sclerae normal ENT: hearing grossly normal Neck: supple, no JVD, trachea midline Respiratory/Chest: lungs clear, normal breath sounds, no respiratory distress, no accessory muscle use Cardiovascular: regular rate, rhythm, no gallop, no murmur Abdomen/GI: normal bowel sounds, soft, + tenderness (bilateral upper quadrants ; no rigidity or guarding ) Extremities/Musculoskelatal: no calf tenderness, no pedal edema Neurologic/Psych: alert, oriented x 3 Skin: normal color, warm/dry Diagnostics Laboratory Results Results Past 24 Hours Test 02/15/17 14:45 02/15/17 15:15 Range/Units Creatine Kinase MB Ratio 0-3.0 White Blood Count 9.05 4.8-10.8 K/uL Red Blood Count 4.41 4.2-5.4 M/uL Hemoglobin 12.8 12.0-16.0 g/dL Hematocrit 37.7 37-47 % Mean Corpuscular Volume 85.5 80-100 fL Mean Corpuscular Hemoglobin 29.0 25-34 pg Mean Corpuscular Hemoglobin Concent 34.0 32-36 g/dl Platelet Count 190 130-400 K/uL Mean Platelet Volume 11.7 7.4-10.4 fL Neutrophils (%) (Auto) 92.1 % Lymphocytes (%) (Auto) 4.0 % Monocytes (%) (Auto) 3.5 % Eosinophils (%) (Auto) 0.0 % Basophils (%) (Auto) 0.1 % Neutrophils # (Auto) 8.33 1.4-6.5 K/uL Lymphocytes # (Auto) 0.36 1.2-3.4 K/uL Monocytes # (Auto) 0.32 0.11-0.59 K/uL Eosinophils # (Auto) 0.00 0-0.5 K/uL Basophils # (Auto) 0.01 0-0.2 K/uL RDW Standard Deviation 55.5 36.4-46.3 fL RDW Coefficient of Variation 17.7 11.5-14.5 % Immature Granulocyte % (Auto) 0.3 % Immature Granulocyte # (Auto) 0.03 0.00-0.02 K/uL Sodium Level 140 136-145 mmol/L Potassium Level 3.4 3.5-5.1 mmol/L Chloride Level 104 98-107 mmol/L Carbon Dioxide Level 25 21-32 mmol/L Anion Gap 11.0 3-11 mmol/L Blood Urea Nitrogen 15 7-18 mg/dl Creatinine 0.94 0.60-1.20 mg/dl Est Creatinine Clear Calc Drug Dose 57.5 ml/min Estimated GFR () 73.3 Estimated GFR (Non- 63.2 BUN/Creatinine Ratio 16.4 10-20 Random Glucose 90 70-99 mg/dl Calcium Level 9.0 8.5-10.1 mg/dl Total Bilirubin 3.6 0.2-1 mg/dl Aspartate Amino Transf (AST/SGOT) 479 15-37 U/L Alanine Aminotransferase (ALT/SGPT) 405 12-78 U/L Alkaline Phosphatase 1569 45-117 U/L Creatine Kinase MB 0.9 0.5-3.6 ng/ml Troponin I < 0.015 0-0.045 ng/ml Total Protein 7.7 6.4-8.2 gm/dl Albumin 3.4 3.4-5.0 gm/dl Globulin 4.3 2.5-4.0 gm/dl Albumin/Globulin Ratio 0.8 0.9-2 Amylase Level 5674 25-115 U/L Lipase 07518 73-393 U/L Diagnostic Radiology ABDOMINAL ULTRASOUND, RIGHT UPPER QUADRANT FINDINGS: Mild intra and extrahepatic biliary ductal dilatation is noted. Common bile duct measures 8 mm in caliber. This is similar to prior CT. The biliary stent is visualized. Multiple hepatic lesions are again noted. These are better depicted on recent CT of February 03, 2017. There is mild dilatation of the main pancreatic duct which measures 4 mm in caliber. This may reflects a new finding since prior CT. Several hypoechoic lesions either adjacent to or arising from the pancreas are noted. The largest measures 2 cm and is at the level the pancreatic body. There is no right hydronephrosis. Multiple right renal cysts are noted. IMPRESSION: 1. Mild intra and extrahepatic biliary ductal dilatation which is either stable or slightly improved since CT of February 03, 2017. Biliary stent in place. 2. Interval development of mild dilatation of the main pancreatic duct. Partially obscured pancreas. 3. Several hypoechoic lesions either arising from or adjacent to the pancreas which were present on prior CT. The largest lesion favors a peripancreatic lymph node although a pancreatic lesion or complex peripancreatic fluid collection could appear similar. 4. Multiple hepatic masses which are better depicted on CT of February 03, 2017. PA CHEST RADIOGRAPH AND UPRIGHT AND SUPINE AP RADIOGRAPHS OF THE ABDOMEN FINDINGS: Lung volumes are normal. No pneumothorax or pleural effusion is present. There is no consolidation to suggest pneumonia. Pulmonary vascularity is normal. Cardiomediastinal silhouette is normal. Surgical clips from thyroidectomy are noted. There is no free air. A biliary stent is in place. There are cholecystectomy clips. There is no evidence for a bowel obstruction. IMPRESSION: 1. No free air or evidence of bowel obstruction. 2. Biliary stent in place. 3. No acute cardiopulmonary findings. EKG Sinus bradycardia Incomplete right bundle branch block Poor R wave progression, consider anterior ND vs. lead placement vs. LVH Prolonged QT Abnormal ECG When compared with ECG of 06-DEC-2016 06:48, Questionable change in initial forces of Septal leads Confirmed by Wesley Rivas ([id number]) on 02/15/2017 6:14:56 PM Impression Assessment and Plan Ms. Neff is a 66 y/o female with PMHx of Metastatic Carcinoid CA and Hypothyroidism 2/2 Thyroidectomy who presents to the ED c/o abdominal pain that started this AM. Patient underwent ERCP with stent placement and sphincterotomy yesterday by Dr. Martinez for abnormal LFTs dilated CBD. Acute Pancreatitis 2/2 ERCP: - [place] [address] - NSS at 125 mL/hr - monitor electrolytes and replete as necessary - Dilaudid 0.5-1 mg IV Q2H PRN - Zosyn given recent procedure - Clear liquid diet - Consult GI - appreciate any further recommendations Metastatic Carcinoid CA: Follows with Dr. Napoles - Is on Afinitor - was instructed to hold prior to surgery but is not sure when to resume - will need discussed with Dr. Napoles Hypothyroidism 2/2 Thyroidectomy: - Synthroid 125 mcg daily - if unable to orally tolerate may need to convert to IV DVT Prophylaxis: SCDs Code Status: FULL RESUSCITATION Disposition: - Trend LFTs and Lipase - await clinical improvement - likely discharge in 1-2 days Attending Addendum: I have physically seen and examined this patient, have directed the physician assistants medical activities, and agree with the H&P as noted above with the following exceptions as noted. The patient is awake, alert and oriented 3, thin, normocephalic and atraumatic , lying in bed and in no acute distress. HEENT--PERRL, EOMI, mucous membranes and oropharynx dry. Neck--supple, no JVD or bruits, thyroid normal, trachea midline, no adenopathy. Heart--normal S1 and S2, no extra beats, no murmurs, rubs or gallops. Lungs--clear bilaterally with good air movement, no respiratory distress, no accessory muscle use. Abdomen--normal bowel sounds and soft, tender bilateral upper quadrants with no rebound or guarding, nondistended, no hernias or masses, no organomegaly. Extremities--no cyanosis, clubbing or edema. There are good distal pulses b/l. Dermatologic--normal skin turgor, normal color, warm and dry, no abnormal lymph nodes, no rash. Neurologic--cranial nerves II through XII grossly intact. Rheumatologic--normal range of motion, nontender, muscles and joints. Psychiatric--normal affect. Assessment and Plan: Acute pancreatitis status post ERCP-- Zosyn 3.375 mg IV every 8 hours Clear liquid diet and advance as tolerated Follow serial CBC with differential, BMP, LFTs and amylase and lipase Normal saline at 100 mils per hour Dilaudid 0.5-1 mg IV every 2 hours when necessary severe pain. Consult GI. Metastatic carcinoid cancer-- Off Afinitor prior to surgery, and will resume at the direction of Dr. Napoles. Level of Care Med/Surg Advanced Directives Existing Advance Directive: No Existing Living Will: No Existing Power of Switch Cleaner: No Resuscitation Status FULL RESUSCITATION VTE Prophylaxis VTE Risk Assessment Done? Y/N: Yes Risk Level: Moderate Given or contraindicated: SCD's Social Service Consult Cancer Patient Under [place]
[2017-02-15] MEDS ORDERED: HYDROmorphone INJ 1 MG/ML SYR IV PRN (18:30)
[2017-02-15] MEDS ORDERED: ONDANSETRON INJ 2 MG/ML 2 ML VIAL ONE (18:42)
[2017-02-15] MEDS ORDERED: HYDROmorphone INJ 0.5 MG/0.5 ML SYR ONE (18:42)
[2017-02-15] MEDS ORDERED: PIPERACILL/TAZOBAC CONSULT ACTIVE PRN (19:15)
[2017-02-15] MEDS ORDERED: POLYETHYLENE (MIRALAX) 17 GM PACK PO PRN (19:15)
[2017-02-15 20:30] VITALS: BP 181/86; PULSE 56; TEMP 36.9; O2SAT 98; Ht 172.7 cm; Wt 61.9 kg
[2017-02-15] MEDS: SODIUM CHLORIDE 0.9% 1000ML 1,000 ML IV SCH (21:44)
[2017-02-15] MEDS: HYDROmorphone INJ 0.5 MG/0.5 ML SYR IV PRN (21:45)
[2017-02-15] MEDS: ONDANSETRON INJ 2 MG/ML 2 ML VIAL IV PRN (21:50)
[2017-02-15 22:40] VITALS: BP 195/87
[2017-02-15 23:36] VITALS: BP 185/77; PULSE 53; TEMP 36.6; O2SAT 99
[2017-02-15] MEDS: PROCHLORPERAZINE MALEATE 10 MG TAB PO PRN (23:41)
[2017-02-16] MEDS: HYDROmorphone INJ 0.5 MG/0.5 ML SYR IV PRN ×5 (00:24→20:43)
[2017-02-16] MEDS: HydrALAZINE HCL 20 MG/ML VIAL IV. PRN ×2 (00:36→23:16)
[2017-02-16] MEDS: PIPERACILL/TAZOBAC IV 3.375 GM in DEXTROSE 5% 100ML 100 ML IV SCH ×3 (01:32→17:35)
[2017-02-16] MEDS: SODIUM CHLORIDE 0.9% 1000ML 1,000 ML IV SCH ×3 (01:33→17:34)
[2017-02-16 04:02] VITALS: BP 125/62
[2017-02-16] MEDS: ONDANSETRON INJ 2 MG/ML 2 ML VIAL IV PRN ×4 (05:43→20:36)
[2017-02-16] MEDS: LEVOTHYROXINE 125 MCG TAB PO SCH (05:43)
[2017-02-16 06:50] LABS: HEMATOCRIT 31.1 % (37-47); MEAN CELL VOLUME 89.1 fL (80-100); MEAN CORPUSCULAR HEMOGLOBIN 28.7 pg (25-34); MEAN CORPUSCULAR HGB CONC 32.2 g/dl (32-36); PLATELET COUNT 129 K/uL (130-400); RED BLOOD COUNT 3.49 M/uL (4.2-5.4)
[2017-02-16 07:23] VITALS: BP 150/72; PULSE 66; TEMP 36.7; O2SAT 98
[2017-02-16 07:27] LABS: URINE APPEARANCE CLEAR (CLEAR); URINE BILIRUBIN NEG (NEG); URINE COLOR YELLOW; URINE NITRITE NEG (NEG); URINE PH 6.5 (4.5-7.5); URINE SPECIFIC GRAVITY 1.016 (1.000-1.030); UROBILINOGEN NEG (NEG); ZZUR CULT IF INDIC CLEAN CATCH NO
[2017-02-16 07:33] LABS: BUN/CREATININE RATIO 16.8 (10-20); CALCIUM 7.3 mg/dl (8.5-10.1); CREATININE 0.72 mg/dl (0.60-1.20); POTASSIUM 3.4 mmol/L (3.5-5.1)
[2017-02-16 07:34] LABS: MANUAL MICROSCOPIC REQUIRED? NO; REVIEW REQ? NO
[2017-02-16 07:48] LABS: ALB/GLOB RATIO 0.7 (0.9-2)
--- NOTE | 2017-02-16 08:56 | Clinical Documentation Query ---
COLTON Schreiber : CLINICAL DOCUMENTATION QUERY Patient is a 66 year old female presenting with abdominal pain and N/V, s/p ERCP with stent placement and sphincterotomy for apparent biliary malignancy. Documentation includes "Acute Pancreatitis 2/2 ERCP". Consider explicit clarification as suggested below as this cannot be assumed by the professional clinic nurse. In your clinical opinion is this patient being managed for: ( )Postprocedural acute pancreatitis, secondary to ERCP, a complication of care (X )Postprocedural acute pancreatitis, secondary to ERCP, NOT a complication of care ( ) Not Agree ( ) Other explanation of clinical findings (Please Explain) ( ) Unable to determine (Please Define) ( ) Need to Discuss The medical record reflects the following clinical findings, treatment, and risk factors. Clinical Indicators: As above Treatment: Serial chemistries, clear liquid diet, GI consultation, analgesia, IVF Risk Factors: ERCP Please clarify and document your clinical opinion in the progress notes and discharge summary. Terms such as "probable", "suspected", "likely", "questionable", "possible", or "still to be ruled out" are acceptable. IF IN AGREEMENT, YOU MUST DOCUMENT ABOVE DIAGNOSTIC STATEMENT IN DAILY PROGRESS NOTES AND DISCHARGE SUMMARY. This document is not part of the patient's record. Thank You, Bj Man, GORDON [phone]
[2017-02-16] MEDS ORDERED: POTASSIUM CHLORIDE 10 MEQ TABCR PO ONE (09:30)
--- NOTE | 2017-02-16 13:35 | Progress Note ---
Subjective Date of Service: Feb 16, 2017. Subjective Pt evaluation today including: conversation w/ patient, conversation w/ family , physical exam, chart review, lab review, review of studies, review of inpatient medication list Resting comfortably in bed Denies worsening abd pain, nausea or vomiting Tolerating clear liquid diet Family at bedside Problem List Medical Problems: (1) Constipation Status: Acute Review of Systems Constitutional: No fever, No chills, No sweats, No weakness, No fatigue Eyes: No worsening of vision, No eye pain, No redness, No discharge ENT: No hearing loss, No unusual epistaxis, No nasal symptoms, No sore throat Respiratory: No cough, No sputum, No wheezing, No shortness of breath, No dyspnea on exertion Cardiac: No chest pain, No orthopnea, No PND, No edema Abdomen: No pain, No nausea, No vomiting, No diarrhea Musculoskeletal: No joint pain, No muscle pain, No swelling, No calf pain Female : No dysuria, No urinary frequency, No hematuria, No incontinence Psychiatric: No depression symptoms, No anhedonism, No anxiety, No insomnia Endo: No fatigue, No excessive thirst Skin: No rash, No itch Objective Vital Signs Date Time Temp Pulse Resp B/P (MAP) Pulse Ox O2 Delivery O2 Flow Rate FiO2 02/16/17 07:50 Room Air 02/16/17 07:23 36.7 66 18 150/72 (98) 98 Room Air 02/16/17 04:02 125/62 (83) 02/16/17 00:15 Room Air 02/15/17 23:36 36.6 53 16 185/77 (113) 99 Room Air 02/15/17 22:40 195/87 (123) 02/15/17 20:30 36.9 56 17 181/86 (117) 98 Room Air 02/15/17 20:30 36.9 56 17 181/86 98 Room Air 02/15/17 20:10 36.4 60 16 169/80 98 02/15/17 20:06 60 16 02/15/17 20:01 55 13 02/15/17 19:56 51 14 02/15/17 19:51 55 15 02/15/17 19:46 53 19 02/15/17 19:41 54 16 02/15/17 19:36 53 23 02/15/17 19:31 49 18 02/15/17 19:26 52 16 02/15/17 19:21 52 19 02/15/17 19:16 52 23 02/15/17 19:11 53 19 02/15/17 19:06 55 17 02/15/17 18:36 54 19 98 02/15/17 18:06 56 15 98 02/15/17 17:36 58 19 98 02/15/17 17:32 62 18 169/80 99 Room Air 02/15/17 17:31 169/80 02/15/17 16:27 181/81 02/15/17 16:26 51 18 181/81 99 Room Air 02/15/17 16:06 46 20 100 02/15/17 15:36 60 16 158/78 100 Room Air 02/15/17 15:36 58 20 100 02/15/17 15:31 158/78 02/15/17 15:26 55 02/15/17 15:18 172/80 Physical Exam General Appearance: WD/WN, no apparent distress Eyes: normal inspection, PERRL, EOMI, sclerae normal Neck: supple, no adenopathy, thyroid normal, no JVD Respiratory/Chest: chest non-tender, lungs clear, normal breath sounds, no respiratory distress Cardiovascular: regular rate, rhythm, no edema, no gallop, no JVD Abdomen: normal bowel sounds, non tender, soft, no organomegaly Extremities: non-tender, normal inspection, no pedal edema, no calf tenderness Neurologic/Psychiatric: no motor/sensory deficits, alert, normal mood/affect, oriented x 3 Laboratory Results Last 24 Hours Test 02/15/17 14:45 02/15/17 15:15 02/16/17 00:00 02/16/17 06:36 Creatine Kinase MB Ratio White Blood Count 9.05 K/uL 6.80 K/uL Red Blood Count 4.41 M/uL 3.49 M/uL Hemoglobin 12.8 g/dL 10.0 g/dL Hematocrit 37.7 % 31.1 % Mean Corpuscular Volume 85.5 fL 89.1 fL Mean Corpuscular Hemoglobin 29.0 pg 28.7 pg Mean Corpuscular Hemoglobin Concent 34.0 g/dl 32.2 g/dl Platelet Count 190 K/uL 129 K/uL Mean Platelet Volume 11.7 fL 10.0 fL Neutrophils (%) (Auto) 92.1 % Lymphocytes (%) (Auto) 4.0 % Monocytes (%) (Auto) 3.5 % Eosinophils (%) (Auto) 0.0 % Basophils (%) (Auto) 0.1 % Neutrophils # (Auto) 8.33 K/uL Lymphocytes # (Auto) 0.36 K/uL Monocytes # (Auto) 0.32 K/uL Eosinophils # (Auto) 0.00 K/uL Basophils # (Auto) 0.01 K/uL RDW Standard Deviation 55.5 fL 60.3 fL RDW Coefficient of Variation 17.7 % 18.6 % Immature Granulocyte % (Auto) 0.3 % Immature Granulocyte # (Auto) 0.03 K/uL Sodium Level 140 mmol/L 143 mmol/L Potassium Level 3.4 mmol/L 3.4 mmol/L Chloride Level 104 mmol/L 110 mmol/L Carbon Dioxide Level 25 mmol/L 26 mmol/L Anion Gap 11.0 mmol/L 7.0 mmol/L Blood Urea Nitrogen 15 mg/dl 12 mg/dl Creatinine 0.94 mg/dl 0.72 mg/dl Est Creatinine Clear Calc Drug Dose 57.5 ml/min 75.1 ml/min Estimated GFR () 73.3 101.1 Estimated GFR (Non- 63.2 87.3 BUN/Creatinine Ratio 16.4 16.8 Random Glucose 90 mg/dl 72 mg/dl Calcium Level 9.0 mg/dl 7.3 mg/dl Total Bilirubin 3.6 mg/dl 1.9 mg/dl Aspartate Amino Transf (AST/SGOT) 479 U/L 236 U/L Alanine Aminotransferase (ALT/SGPT) 405 U/L 243 U/L Alkaline Phosphatase 1569 U/L 1033 U/L Creatine Kinase MB 0.9 ng/ml Troponin I < 0.015 ng/ml Total Protein 7.7 gm/dl 5.7 gm/dl Albumin 3.4 gm/dl 2.4 gm/dl Globulin 4.3 gm/dl 3.3 gm/dl Albumin/Globulin Ratio 0.8 0.7 Amylase Level 5674 U/L Lipase 66652 U/L 7936 U/L Urine Color YELLOW Urine Appearance CLEAR Urine pH 6.5 Urine Specific [place] 1.016 Urine Protein NEG Urine Glucose (UA) NEG Urine Ketones 1+ Urine Occult Blood NEG Urine Nitrite NEG Urine Bilirubin NEG Urine Urobilinogen NEG Urine Leukocyte Esterase NEG Direct Bilirubin 1.2 mg/dl Assessment and Plan Ms. Neff is a 66 y/o female with PMHx of Metastatic Carcinoid CA and Hypothyroidism 2/2 Thyroidectomy who presents to the ED c/o abdominal pain that started this AM. Patient underwent ERCP with stent placement and sphincterotomy yesterday by Dr. Martinez for abnormal LFTs dilated CBD. Acute Pancreatitis likely secondary to ERCP, NOT a complication [place] [address] down to 8000, AST 479-->236 and ALT 405-->243 - Cont NSS at 125 mL/hr - Dilaudid 0.5-1 mg IV Q2H PRN - Zosyn given recent procedure - Advance diet as tolerated - Consult GI - appreciate any further recommendations Metastatic Carcinoid CA: Follows with Dr. Napoles - Is on Afinitor - was instructed to hold prior to surgery but is not sure when to resume - will need discussed with Dr. Napoles Hypothyroidism 2/2 Thyroidectomy: - Synthroid 125 mcg daily - if unable to orally tolerate may need to convert to IV DVT Prophylaxis: SCDs Code Status: FULL RESUSCITATION
[2017-02-16 15:18] VITALS: BP 172/86; PULSE 59; TEMP 36.7; O2SAT 99
[2017-02-16 22:55] VITALS: BP 169/84; PULSE 60; TEMP 37; O2SAT 98
[2017-02-17] MEDS: ONDANSETRON INJ 2 MG/ML 2 ML VIAL IV PRN ×2 (01:38→07:34)
[2017-02-17] MEDS: PIPERACILL/TAZOBAC IV 3.375 GM in DEXTROSE 5% 100ML 100 ML IV SCH ×2 (01:38→09:37)
[2017-02-17] MEDS: SODIUM CHLORIDE 0.9% 1000ML 1,000 ML IV SCH ×2 (01:38→09:37)
[2017-02-17] MEDS: HYDROmorphone INJ 0.5 MG/0.5 ML SYR IV PRN ×2 (01:39→07:35)
[2017-02-17 07:04] LABS: BUN/CREATININE RATIO 9.7 (10-20); CALCIUM 6.9 mg/dl (8.5-10.1); CREATININE 0.78 mg/dl (0.60-1.20); POTASSIUM 3.3 mmol/L (3.5-5.1)
[2017-02-17 07:11] LABS: ALB/GLOB RATIO 0.7 (0.9-2)
[2017-02-17] MEDS ORDERED: POTASSIUM CHLORIDE 10 MEQ TABCR PO STA (07:31)
[2017-02-17 07:32] VITALS: BP 166/80; PULSE 59; TEMP 36.8; O2SAT 96
[2017-02-17] MEDS: LEVOTHYROXINE 125 MCG TAB PO SCH (07:35)
--- NOTE | 2017-02-17 08:01 | GASTROINTESTINAL CONSULTATION ---
DATE OF CONSULTATION: 02/16/2017 CHIEF COMPLAINT: Pancreatitis. HISTORY OF PRESENT ILLNESS: A 66-year-old white female with a history of metastatic carcinoid since approximately 2006. The patient underwent treatments at [place] with continued followup care locally with Dr. Napoles. The patient's treatment is Afinitor as well as home octreotide which seemed to control symptoms. The patient was found to have rising liver function tests, although reports that she did not turn jaundiced, have fever or chills or changes in stool or urine color. As an outpatient, the patient underwent an ERCP to address abnormal changes on imaging and was found to have a proximal biliary duct stricture which underwent treatment with stent placement. The patient did well upon discharge, however, developed abdominal pain later that evening that she describes today as nearly 10/10. At the present time, the patient is actually feeling quite well and tolerated small amounts of solid foods earlier this afternoon and labels her pain at 3/10. She has not had a prior ERCP. In the Emergency Room, lipase was elevated at approximately 53,000, and although LFTs were elevated in the ER, they actually revealed some resolution with bilirubin from 3.6 down to 1.9, AST from 479 to 236, ALT 405 to 243 and alkaline phosphatase 1569 down to 1033. Lipase was elevated at 52,922 but has fallen this morning to 7936. PAST MEDICAL HISTORY: Significant for metastatic carcinoid, biliary stricture described above, hypothyroidism. FAMILY HISTORY: Noncontributory. SOCIAL HISTORY: The patient did smoke in the past but does not currently smoke or use alcoholic beverages. She is , lives with her family. ALLERGIES: SHE IS ALLERGIC TO MORPHINE. HOME MEDICATIONS: Include calcium carbonate, levothyroxine, multivitamins, octreotide, oxycodone, and p.r.n. meds with dicyclomine, ibuprofen, Compazine and Ativan. REVIEW OF SYSTEMS: Otherwise noncontributory based on 13-point exam except for mentioned above. The patient denies odynophagia, dysphagia, melena, bright red blood per rectum, diarrhea or constipation. She denies any significant respiratory symptoms, palpitations, chest pain. During admission last evening, the patient did have nausea and vomiting without diarrhea, although at the present time this has resolved. She denies dysuria or hematuria. PHYSICAL EXAMINATION: VITAL SIGNS: On admission, temperature 36.4, heart rate 55, respirations 16, blood pressure 142/72, pulse ox 96% on room air. Currently, her vital signs are stable and reviewed. GENERAL: Today shows a well-developed female, sitting in bed comfortably, in no acute distress. HEENT: Oral mucosa is moist. Sclerae are anicteric, conjunctivae moist. NECK: There is no cervical or supraclavicular adenopathy. I do not appreciate thyromegaly. EXTREMITIES: Normal range of motion. NEUROLOGIC: She is nonfocal. LUNGS: Clear to auscultation. HEART: Normal S1, S2. ABDOMEN: Soft, minimally tender in the epigastrium without rebound or guarding. I do not appreciate hepatosplenomegaly. There is no evidence of ascites or shifting dullness. There are no abdominal bruits. RECTAL: Deferred. IMAGING STUDIES: Ultrasound performed in the Emergency Room reveals hypoechoic lesions arising from adjacent to the pancreas, which were also seen on prior CT. These may represent lymph nodes. There are multiple hepatic masses also identified on 02/03/2017 CAT scan. There is evidence of mild intra and extrahepatic ductal dilatation which may be actually slightly improved compared to the CT scan from 02/03/2017. A biliary stent is identified. LABORATORY STUDIES: Showed no evidence of leukocytosis with a white count today of 6.8. Serum chemistries, potassium is low at 3.4, BUN and creatinine of 12 and 0.7, albumin 2.4. IMPRESSION: Mrs. Neff is a 66-year-old white male with a history of metastatic carcinoid, who underwent chemotherapy and chemoembolization at [place] as well as continued followup here. She is on octreotide for symptom control, which for the most part does a good job according to the patient. She was recently found to have ductal dilation and rising liver function tests and a proximal biliary ductal stricture was identified and successfully treated by ERCP and stent placement and LFTs are showing improvement over 1 day. The patient developed pancreatitis. Clinically, she is doing much better and tolerating foods. At the present time, would continue to cautiously maintain her diet with small frequent meals, and if this is not well tolerated, she should either be made n.p.o. for observation or reduce it down to small amounts of clear liquids only. We will follow liver tests serially both as an inpatient and outpatient to gauge success. We did speak for several minutes regarding the approach to this biliary stricture. The plastic stent that was placed is of temporary nature and options include either serial replacement of stents or consideration for a self-expanding metallic stent, either covered or uncovered. Will discuss this with Dr. Martinez as far as his plans for subsequent ERCP; however, at the present time, the 7-Macedonian 15-cm stent should have a durability of 6-8 weeks before requiring change. It would appear that the stricture is occurring at the hepatic duct bifurcation. All questions answered. Thank you for allowing me to participate in this patient's care. URI
[2017-02-17] MEDS ORDERED: NURSING VERBAL MED ORDER ONE (08:30)
[2017-02-17] MEDS ORDERED: HydrALAZINE HCL 20 MG/ML VIAL IV. PRN (08:45)
[2017-02-17] MEDS ORDERED: OXYCODONE HCL 15 MG TABCR (OXYCONTIN) PO PRN (09:00)
[2017-02-17] MEDS ORDERED: OXYC15TA89 PO (09:44)
--- NOTE | 2017-02-17 09:49 | Discharge Instructions ---
Discharge Instructions Date of Service Feb 17, 2017. Admission Reason for Admission: Pancreatitis Discharge Discharge Diagnosis / Problem: Pancreatitis Discharge Goals Goal(s): Decrease discomfort, Improve function, Increase independence, Improve disease control, Learn about illness, Diagnostic testing, Prevent Disease Progression Activity Recommendations Activity Limitations: resume your previous activity Exercise/Sports Limitations: as tolerated . Instructions / Follow-Up Instructions / Follow-Up Patient to be discharged home Patient admitted with pancreatitis Please advance diet as tolerated on discharge, please limit greasy/fat foods on discharge for next few days Maintain hydration Please take oxycontin as prescribed, addition script sent electronically to pharmacy If worsening abdominal pain or fever please report to ER Please follow up with Dr Martinez in 1 week Please follow up with Dr Tsang in 1-2 weeks Current Hospital Diet Patient's current hospital diet: Regular Diet Discharge Diet Recommended Diet: Regular Diet Pending Studies Studies pending at discharge: no Medical Emergencies . Who to Call and When: Medical Emergencies: If at any time you feel your situation is an emergency, please call 911 immediately. . Non-Emergent Contact Non-Emergency issues call your: Primary Care Provider Call Non-Emergent contact if: you have a fever, your pain is worsening . . "Provider Documentation" section prepared by Rock Dillon. . VTE Core Measure Inpt VTE Proph given/why not?: SCD's
[2017-02-17 10:40] VITALS: BP 145/80
[2017-02-17 11:36] VITALS: BP 145/80; PULSE 59; TEMP 36.8; O2SAT 96
--- NOTE | 2017-02-17 12:06 | Discharge Summary ---
Discharge Summary Date of Service Feb 17, 2017. Discharge Summary Admission Date: Feb 15, 2017 at 18:07 Discharge Date: Feb 17, 2017 Discharge Disposition: Home Principal Diagnosis: Pancreatitis Immunizations: Have You Had Influenza Vaccine: No History of Tetanus Vaccine?: Unknown History of Pneumococcal: No History of Hepatitis B Vaccine: No Consultations: GI Medication Reconciliation Continued Medications: Calcium Carbonate (Os-Mina 500) Unknown Strength Tab 1 TAB PO DAILY Cholecalciferol (Vitamin D 1000 Unit) 1,000 Unit Cap 2000 INTER.UNIT PO DAILY, CAP Dicyclomine Hcl (Bentyl) 20 Mg Tab 20 MG PO QID PRN for PRN, TAB Ibuprofen (Advil) 200 Mg Tab 200-600 MG PO Q4H PRN, TAB Levothyroxine Sodium (Synthroid) 125 Mcg Tab 125 MCG PO DAILY, TAB Lorazepam (Ativan) 0.5 Mg Tab 0.5 MG PO Q6 PRN for Anxiety, #120 TAB NEEDED FOR ANXIETY. Multivitamin (Multivitamin) Tab 1 TAB PO DAILY, TAB Octreotide Acetate (Sandostatin) 200 Mcg/Ml Inj 1 DOSE INJ MONTHLY Oxycodone HCl (Oxycodone HCl) 5 Mg Tab 1-2 TAB PO Q4H for Pain, #100 Oxycodone Hcl (Oxycontin) 15 Mg Tab 15 MG PO Q12, #30 TAB (This prescription has been renewed) Prochlorperazine Maleate (Prochlorperazine Maleate) 10 Mg Tab 10 MG PO DAILY PRN for Nausea Discharge Exam Review of Systems: Constitutional: No fever, No chills, No sweats, No weakness ENT: No hearing loss, No unusual epistaxis, No nasal symptoms, No sore throat Respiratory: No cough, No sputum, No wheezing, No shortness of breath Cardiovascular: No chest pain, No orthopnea, No PND, No edema Abdomen: No pain, No nausea, No vomiting, No diarrhea Musculoskeletal: No joint pain, No muscle pain, No swelling, No calf pain Genitourinary - Female: No dysuria, No urinary frequency, No urinary urgency , No urinary incontinence Neurologic: No memory loss, No paralysis, No weakness, No numbness/tingling Psychiatric: No depression symptoms, No anhedonism, No anxiety Integumentary: No rash, No itch Physical Exam: General Appearance: WD/WN, no apparent distress Eyes: normal inspection, PERRL, EOMI, sclerae normal Neck: supple, no adenopathy, thyroid normal Respiratory/Chest: chest non-tender, lungs clear, normal breath sounds, no respiratory distress Cardiovascular: regular rate, rhythm, no edema, no gallop, no JVD Abdomen / GI: normal bowel sounds, non tender (tenderness in upper left quadrant), soft, no organomegaly, + tenderness Extremities: normal inspection, no calf tenderness, normal capillary refill , no pedal edema Neurologic/Psychiatric: no motor/sensory deficits, alert, normal mood/affect , oriented x 3 Skin: normal color, warm/dry, no rash Lymphatic: no adenopathy Hospital Course Ms. Neff is a 66 y/o female with PMHx of Metastatic Carcinoid CA and Hypothyroidism 2/2 Thyroidectomy who presents to the ED c/o abdominal pain that started this AM. Patient underwent ERCP with stent placement and sphincterotomy yesterday by Dr. Martinez for abnormal LFTs dilated CBD. Acute Pancreatitis likely secondary to ERCP, NOT a complication [place] care: [place] [address] --> 8000 -->500, AST 479-->236 -->138 and ALT 405-->243 --> 177 - Improved with NSS at 125 mL/hr - Dilaudid 0.5-1 mg IV Q2H PRN - Zosyn given recent procedure - Advance diet as tolerated, discharged home on 02/17, prescription for oxycontin 15 mg PO BID given - Consult GI - f/u as OP for stent replacement Metastatic Carcinoid CA: Follows with Dr. Napoles - Is on Afinitor - was instructed to hold prior to surgery but is not sure when to resume - will need discussed with Dr. Napoles Hypothyroidism 2/2 Thyroidectomy: - Synthroid 125 mcg daily - if unable to orally tolerate may need to convert to IV DVT Prophylaxis: SCDs Code Status: FULL RESUSCITATION Total Time Spent: Greater than 30 minutes This includes examination of the patient, discharge planning, medication reconciliation, and communication with other providers. Discharge Instructions Please refer to the electronic Patient Visit Report (Discharge Instructions) for additional information. Additional Copies To Gideon Tsang D.O.
[2017-02-17] MEDS: PROCHLORPERAZINE MALEATE 10 MG TAB PO PRN (12:54)
== END 2017-02-17 14:20 | disposition home or self-care (01) | DRG 438 ==
LOC: C.EDB 13:07 → C.MSW 18:07 → ENRESERV 18:44
PROVIDERS: ADMIT Hospitalist; ATTEND Hospitalist
PROC: 0F798DZ Dilation of Common Bile Duct with Intraluminal Device, Via Natural or Artificial Opening Endoscopic (ICD-10-PCS; principal; 2017-02-14)
DX: K85.80 Other acute pancreatitis without necrosis or infection (principal); K83.1 Obstruction of bile duct; C7A.00 Malignant carcinoid tumor of unspecified site; E89.0 Postprocedural hypothyroidism; Z87.891 Personal history of nicotine dependence; Z79.891 Long term (current) use of opiate analgesic; Z79.899 Other long term (current) drug therapy; Z88.5 Allergy status to narcotic agent

== ENCOUNTER → 2017-04-22 | Outpatient (CLI) | payer OTHER ==
[~2017-04-22] MED LIST changes: +ATV1 PO; +CALC500C70 PO; +CEFT1INJ57 IV; +DOCU100T7 PO; +OXYC-164 PO; +OXYSR15 PO; +POLY335019 PO; +POTA99TA PO; -PRLSR20 PO; +RXC5 PO
--- NOTE | 2017-04-27 15:07 | CODING QUERY NO DIAGNOSIS ---
: 1950 TREATMENT RENDERED WITHOUT A DIAGNOSIS PLEASE PROVIDE COPY OF PHYSICIAN ORDER To promote full compliance with coding requirements relating to patient care, physician participation is requested in all cases of certified medical records coder uncertainty. Please assist us with providing a copy of the physician order including diagnosis and signature for the services rendered on 04/22/17 which include the following: BLOOD CULTURE Thank you [facility] [employer] Once completed, please kindly fax back to [phone] For questions please call [phone]
== END | disposition home or self-care (01) ==
LOC: C.LABSPEC 17:14
PROVIDERS: ATTEND Internal Medicine Hematology & Oncology
DX: C7A.00 Malignant carcinoid tumor of unspecified site (principal)

== ENCOUNTER → 2017-05-03 | Outpatient (CLI) | payer OTHER ==
[~2017-05-03] MED LIST changes: -CALC12502 PO; -CHOL100027 PO; -DICY20TA35 PO; -IBUP-1050 PO; -LORA-741 PO; -MULT-506 PO; -OCTR200I INJ; -OXYC-164 PO; -OXYC-609 PO; -OXYC15TA89 PO
[2017-05-03 11:42] LABS: BASO % 0.2 %; BASO ABS # 0.01 K/uL (0-0.2); COMPLETE YES; EOS % 0.5 %; HEMATOCRIT 28.6 % (37-47); IG% 0.2 %; LYMPH % 5.3 %; LYMPH ABS # 0.35 K/uL (1.2-3.4); MEAN CELL VOLUME 91.4 fL (80-100); MEAN CORPUSCULAR HGB CONC 32.9 g/dl (32-36); MONO % 7.5 %; NEUT % 86.3 %; PLATELET COUNT 217 K/uL (130-400); RED BLOOD COUNT 3.13 M/uL (4.2-5.4); WHITE BLOOD COUNT 6.63 K/uL (4.8-10.8)
[2017-05-03 11:52] LABS: ALT/SGPT 91 U/L (12-78); AST/SGOT 159 U/L (15-37); BLOOD UREA NITROGEN 7 mg/dl (7-18); BUN/CREATININE RATIO 10.8 (10-20); CALCIUM 7.7 mg/dl (8.5-10.1); CARBON DIOXIDE 26 mmol/L (21-32); CHLORIDE 105 mmol/L (98-107); CREATININE 0.66 mg/dl (0.60-1.20); GLUCOSE 115 mg/dl (70-99); POTASSIUM 3.7 mmol/L (3.5-5.1); SODIUM 138 mmol/L (136-145)
[2017-05-03 12:06] LABS: ALB/GLOB RATIO 0.4 (0.9-2); ALKALINE PHOSPHATASE 1293 U/L (45-117); C-REACTIVE PROTEIN 5.69 mg/dl (0-0.29)
== END | disposition home or self-care (01) ==
LOC: C.LABSPEC 11:27
PROVIDERS: ATTEND Internal Medicine Hematology & Oncology
DX: C7A.00 Malignant carcinoid tumor of unspecified site (principal)

== ENCOUNTER → 2017-05-10 | Outpatient (CLI) | payer OTHER ==
[~2017-05-10] MED LIST changes: +CALC12502 PO; +CHOL100027 PO; +DICY20TA35 PO; +IBUP-1050 PO; +LORA-741 PO; +MULT-506 PO; +OCTR200I INJ; +OXYC-164 PO; +OXYC-609 PO; +OXYC15TA89 PO
[2017-05-10 11:30] LABS: BASO % 0.3 %; BASO ABS # 0.02 K/uL (0-0.2); COMPLETE YES; EOS % 0.3 %; HEMATOCRIT 27.5 % (37-47); IG% 0.2 %; LYMPH % 5.2 %; LYMPH ABS # 0.31 K/uL (1.2-3.4); MEAN CELL VOLUME 93.2 fL (80-100); MEAN CORPUSCULAR HEMOGLOBIN 30.5 pg (25-34); MEAN CORPUSCULAR HGB CONC 32.7 g/dl (32-36); MEAN PLATELET VOLUME 10.2 fL (7.4-10.4); MONO % 7.9 %; NEUT % 86.1 %; PLATELET COUNT 191 K/uL (130-400); RED BLOOD COUNT 2.95 M/uL (4.2-5.4); WHITE BLOOD COUNT 5.92 K/uL (4.8-10.8)
[2017-05-10 11:41] LABS: ALB/GLOB RATIO 0.4 (0.9-2); ALT/SGPT 199 U/L (12-78); AST/SGOT 374 U/L (15-37); BLOOD UREA NITROGEN 9 mg/dl (7-18); BUN/CREATININE RATIO 12.1 (10-20); C-REACTIVE PROTEIN 3.87 mg/dl (0-0.29); CARBON DIOXIDE 28 mmol/L (21-32); CHLORIDE 101 mmol/L (98-107); CREATININE 0.77 mg/dl (0.60-1.20); GLUCOSE 97 mg/dl (70-99); SODIUM 134 mmol/L (136-145)
[2017-05-10 11:53] LABS: ALKALINE PHOSPHATASE 1296 U/L (45-117)
== END | disposition home or self-care (01) ==
LOC: C.LABSPEC 11:07
PROVIDERS: ATTEND Internal Medicine Hematology & Oncology
DX: C7B.02 Secondary carcinoid tumors of liver (principal)

== ENCOUNTER → 2017-05-17 | Outpatient (CLI) | payer OTHER ==
[~2017-05-17] MED LIST changes: -CALC12502 PO; -CHOL100027 PO; -DICY20TA35 PO; -IBUP-1050 PO; -LORA-741 PO; -MULT-506 PO; -OCTR200I INJ; -OXYC-164 PO; -OXYC-609 PO; -OXYC15TA89 PO
[2017-05-17 15:27] LABS: HEMATOCRIT 25.3 % (37-47); HEMOGLOBIN 8.2 g/dL (12.0-16.0); MEAN CELL VOLUME 94.8 fL (80-100); MEAN CORPUSCULAR HEMOGLOBIN 30.7 pg (25-34); MEAN CORPUSCULAR HGB CONC 32.4 g/dl (32-36); MEAN PLATELET VOLUME 10.9 fL (7.4-10.4); PLATELET COUNT 196 K/uL (130-400); RED CELL DISTRIBUTION WIDTH CV 20.5 % (11.5-14.5); RED CELL DISTRIBUTION WIDTH SD 70.2 fL (36.4-46.3); WHITE BLOOD COUNT 5.39 K/uL (4.8-10.8)
[2017-05-17 15:37] LABS: ALBUMIN 2.1 gm/dl (3.4-5.0); ALT/SGPT 171 U/L (12-78); AST/SGOT 248 U/L (15-37); BLOOD UREA NITROGEN 10 mg/dl (7-18); CALCIUM 8.2 mg/dl (8.5-10.1); CARBON DIOXIDE 27 mmol/L (21-32); CREATININE 0.77 mg/dl (0.60-1.20); GLUCOSE 131 mg/dl (70-99); POTASSIUM 3.7 mmol/L (3.5-5.1); SODIUM 133 mmol/L (136-145)
[2017-05-17 15:57] LABS: ALKALINE PHOSPHATASE 1000 U/L (45-117); TOTAL PROTEIN 7.4 gm/dl (6.4-8.2)
--- NOTE | 2017-05-24 08:33 | CODING QUERY MEDICAL NECESSITY ---
Valid Physician Order Needed A valid physician order must be submitted in order to properly bill for the service(s) provided, including date of service(s), valid diagnosis, and physician signature. If these tests are done on a recurring basis the original physican order must be submitted in order to code and bill for the service(s) provided. Please fax us the original, signed physician order so that we may expedite billing to [phone] DOS 05/17/2017 * CMP * C-REACTIVE PROTEIN * CBC W/O DIFF * ERYTHROCYTE SEDIMENTATION RATE Thank you [facility] Information Management
== END | disposition home or self-care (01) ==
LOC: C.LABSPEC 15:06
PROVIDERS: ATTEND Internal Medicine Hematology & Oncology
DX: C7A.098 Malignant carcinoid tumors of other sites (principal); C7B.02 Secondary carcinoid tumors of liver